=== PATIENT | male | born 1995 | race Caucasian/White ===

== ENCOUNTER → 2020-01-12 12:06 | Outpatient (BNVA) | payer MEDICAID, SELFPAY | PROVIDERS: Family Provider Internal Medicine; PCP Internal Medicine; Visit Provider Psychiatry & Neurology Psychiatry | DX: F39 Unspecified mood [affective] disorder (principal) | CPT/HCPCS: 80053; 80164; 85025 ==

== ENCOUNTER 2020-05-18 19:38 | Inpatient (IN) | payer MEDICAID, SELFPAY ==
[2020-05-18 19:46] VITALS: BP 137/84; PULSE 96; RESP 16; TEMP 36.6; O2SAT 98; BMI 34.4
[2020-05-18 20:02] VITALS: BP 138/88; PULSE 94; RESP 16; O2SAT 98
[2020-05-18 20:22] LABS: Basophils % 0.3 %; Eosinophils # 0.1 10^3/uL (0.0-0.8); Eosinophils % 1.2 %; Hematocrit 43.3 % (42.0-52.0); Hemoglobin 14.3 g/dL (11.7-16.6); Lymphocytes # 2.3 10^3/uL (0.8-4.8); Lymphocytes % 30.3 %; Mean Corpuscular Hemoglobin 28.5 pg (28.0-34.0); Mean Corpuscular Volume 86.3 fL (80-94); Mean Platelet Volume 10.1 fL (7.4-10.4); Monocytes # 0.6 10^3/uL (0.2-0.9); Monocytes % 8.2 %; Neutrophils # 4.5 10^3/uL (1.8-7.7); Neutrophils % 59.7 %; Nucleated Red Blood Cells % 0 %; Platelet Count 263 10^3/cmm (130-400); Red Blood Count 5.02 10^6/uL (4.1-5.3); Red Cell Distribution Width 12.4 % (12.1-15.1); White Blood Count 7.5 10^3/uL (4.0-10.0)
[2020-05-18 20:43] LABS: Alanine Aminotransferase 35 U/L (0-41); Albumin Level 4.7 g/dL (3.5-5.2); Alkaline Phosphatase 75 IU/L (40-130); Anion Gap 20.2 (5-19); Aspartate Amino Transferase 26 U/L (0-40); Blood Urea Nitrogen 10 mg/dL (6-20); Calcium 9.5 mg/dL (8.5-10.5); Carbon Dioxide 22 mmol/L (22-29); Chloride 102 mmol/L (98-107); Globulin 3.2 g/dL (1.3-4.6); Glomerular Filtration Rate 135.3 mL/min (90-130); Glucose 93 mg/dL (65-115); Osmolality Calculated 286 mOsm/kg (285-295); Potassium 4.2 mmol/L (3.5-5.1); Sodium 140 mmol/L (136-145); Total Bilirubin 0.2 mg/dL (0.15-1.2); Total Protein 7.9 g/dL (6.6-8.7)
[2020-05-18 20:45] LABS: Acetaminophen < 5.0 ug/mL (10-30); Alcohol Level < 10 mg/dL (0-10); Salicylate < 0.3 mg/dL (3-10)
[2020-05-18 20:57] LABS: Add Urine Microscopic? YES; Bilirubin Urine Neg (NEGATIVE); Blood Urine Trace (Negative); Glucose Urine UA Norm (Normal); Ketones Urine Negative (Negative); Leukocyte Esterase Urine 2+ (Negative); Nitrate Urine Negative (Negative); Protein Urine Neg (Negative); Specific Gravity, Urine 1.015 (1.005-1.030); Urine Appearance Cloudy (CLEAR); Urine Color Yellow (Yellow); Urobilinogen Urine Norm (Negative); pH Urine 7 (5-7)
[2020-05-18 20:59] LABS: Bacteria Urine 2+; RBC Urine 0-4 /hpf (0-2); Squamous Epithelial Cell Urine 0-4 (0-5); WBC Urine TOO NUMEROUS TO CNT /hpf (0-5)
[2020-05-18 21:00] LABS: Add Urine Culture? Yes
[2020-05-18 21:02] LABS: Amphetamines Screen Urine Negative (Negative); Barbiturates Screen Urine Negative (Negative); Benzodiazepines Screen Urine Negative (Negative); Cocaine Screen Urine Negative (Negative); Opiate Screen Urine Negative (Negative); PCP Screen Urine Negative (Negative); THC Screen Urine Negative (Negative)
[2020-05-18 21:32] VITALS: RESP 16
[2020-05-18 22:12] VITALS: BP 120/88; PULSE 95; RESP 16; O2SAT 96
[2020-05-18 22:13] VITALS: PULSE 94; RESP 16; O2SAT 97
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
--- NOTE | 2020-05-18 23:01 | PC.NURSE ---
The patient does not know his current medications. There are medications by history in his record. I am unable to verify his medications with a pharmacy at this time.
[2020-05-18] MEDS: OLANZapine 5 mg ODT PO (23:02)
[2020-05-18] MEDS: trazodone 50 mg Tablet PO (23:02)
[2020-05-18] MEDS: hyDROXYzine 25 mg Capsule 50 MG PO (23:02)
[2020-05-18 23:36] VITALS: BP 133/90; PULSE 96; RESP 17; TEMP 36.6; O2SAT 98
[2020-05-19] MEDS: haloperidol 5 mg Tablet PO (00:57)
[2020-05-19 06:00] VITALS: BP 128/89; PULSE 94; RESP 19; TEMP 36.6; O2SAT 98
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
[2020-05-19 13:07] VITALS: BP 129/78; PULSE 101; RESP 18; TEMP 37; O2SAT 99
[2020-05-19] MEDS: hyDROXYzine 25 mg Capsule 50 MG PO (21:10)
[2020-05-19] MEDS: trazodone 50 mg Tablet PO (21:11)
[2020-05-19 22:00] VITALS: BP 127/85; PULSE 93; RESP 17; TEMP 37.1; O2SAT 97
--- NOTE | 2020-05-19 22:54 | PC.NURSE ---
Pt was given PRN meds Vistaril and Trazodone per request at HS.
[2020-05-20 06:00] VITALS: BP 118/73; PULSE 78; RESP 15; TEMP 36.7; O2SAT 97
[2020-05-20 14:00] VITALS: BP 131/86; PULSE 98; RESP 20; TEMP 36.7; O2SAT 96
[2020-05-20] MEDS: divalproex ER 250 mg Tablet (24H) PO (15:00)
[2020-05-20] MEDS: risperiDONE 1 mg Tablet PO (15:27)
[2020-05-20] MEDS: benztropine 1 mg Tablet PO (15:30)
[2020-05-20] MEDS: quetiapine 100 mg Tablet 200 MG PO (15:30)
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
[2020-05-20 17:30] VITALS: BP 131/86; PULSE 98; RESP 20; TEMP 36.7; O2SAT 96
[2020-05-20 18:34] VITALS: BP 135/85
[2020-05-20] MEDS: cloNIDine 0.1 mg Tablet PO (18:34)
--- NOTE | 2020-05-20 19:52 | PC.NURSE ---
PATIENT LEFT AT 1900 PER PRIVATE VEHICLE, BELONGINGS SENT WITH.
== END 2020-05-20 19:00 | disposition home or self-care (01) | DRG 885 ==
LOC: ER 20:09 → NP 22:12
PROVIDERS: Physician Assistant; Admitting Provider Psychiatry & Neurology Psychiatry; Visit Provider Psychiatry & Neurology Psychiatry
DX: F23 Brief psychotic disorder (principal); R45.851 Suicidal ideations; F63.81 Intermittent explosive disorder; F60.89 Other specific personality disorders; F79 Unspecified intellectual disabilities; Z87.891 Personal history of nicotine dependence
CPT/HCPCS: 12345; 80053; 80306; 80307; 81001; 85025; 87077; 87086; 87186; 99284; Q0161

== ENCOUNTER 2020-05-18 19:38 | Emergency (ER) | payer MEDICAID, SELFPAY | END 2020-05-18 22:15 | disposition admitted as inpatient to this hospital (09) | LOC: ER 05-23 00:31 | PROVIDERS: Emergency Provider Family Medicine | DX: R45.851 Suicidal ideations (principal); F23 Brief psychotic disorder; Z87.891 Personal history of nicotine dependence | CPT/HCPCS: 99284; 99285 ==

== ENCOUNTER 2021-01-07 10:00 | Outpatient (CLI) | payer MEDICAID, SELFPAY ==
--- NOTE | 2021-01-07 10:12 | FL_ITS ---
WS: [id number] MODIFIED BARIUM SWALLOW TECHNIQUE: Modified barium swallow with speech therapy using multiple consistencies. FLUOROSCOPY TIME: 2.7 minutes. CLINICAL INFORMATION: Other dysphagia COMPARISON: None. FINDINGS: Limited examination due to patient cooperation. Multiple consistencies utilized. No evidence of aspiration or penetration. No difficulties with the b arium tablet. Normal oropharyngeal phase. FL/FL barium swallow modifd [id number] IMPRESSION: No evidence of aspiration penetration
== END 2021-01-07 10:01 | disposition home or self-care (01) ==
LOC: RAD 10:07
PROVIDERS: PCP Nurse Practitioner Family; Visit Provider Nurse Practitioner Family
DX: R13.10 Dysphagia, unspecified (principal)
CPT/HCPCS: 74230; 92611

== ENCOUNTER 2021-09-11 16:55 | Inpatient (IN) | payer MEDICAID, SELFPAY ==
[2021-09-11 16:59] VITALS: BP 123/88; PULSE 95; RESP 18; TEMP 36.7; O2SAT 98; BMI 26.7
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
[2021-09-11 17:58] LABS: Basophils % 0.5 %; Eosinophils # 0.1 10^3/uL (0.0-0.8); Eosinophils % 0.9 %; Hematocrit 42.3 % (42.0-52.0); Hemoglobin 14.9 g/dL (11.7-16.6); Lymphocytes # 2.4 10^3/uL (0.8-4.8); Lymphocytes % 41.7 %; Mean Corpuscular HGB Conc 35.2 g/dL (30.0-36.0); Mean Corpuscular Hemoglobin 29.9 pg (28.0-34.0); Mean Corpuscular Volume 84.9 fl (80-94); Mean Platelet Volume 10.6 fL (7.4-10.4); Monocytes # 0.5 10^3/uL (0.2-0.9); Monocytes % 9.1 %; Neutrophils # 2.76 10^3/uL (1.8-7.7); Neutrophils % 47.6 %; Nucleated Red Blood Cells % 0 %; Platelet Count 261 10^3/cmm (130-400); Red Blood Count 4.98 10^6/uL (4.1-5.3); Red Cell Distribution Width 12.5 % (12.1-15.1); White Blood Count 5.8 10^3/uL (4.0-10.0)
[2021-09-11 18:32] LABS: Alanine Aminotransferase 18 U/L (0-41); Albumin Level 4.5 g/dL (3.5-5.2); Alkaline Phosphatase 83 IU/L (40-130); Anion Gap 15.1 (5-19); Aspartate Amino Transferase 13 U/L (0-40); Blood Urea Nitrogen 7 mg/dL (6-20); Calcium 9.5 mg/dL (8.5-10.5); Carbon Dioxide 26 mmol/L (22-29); Chloride 102 mmol/L (98-107); Globulin 2.7 g/dL (1.3-4.6); Glomerular Filtration Rate 186.1 mL/min (90-130); Glucose 84 mg/dL (65-115); Osmolality Calculated 285 mOsm/kg (285-295); Potassium 4.1 mmol/L (3.5-5.1); Sodium 139 mmol/L (136-145); Thyroid Stimulating Hormone 0.87 uIU/mL (0.27-4.20); Total Bilirubin 0.2 mg/dL (0.15-1.2); Total Protein 7.2 g/dL (6.6-8.7)
[2021-09-11 18:35] LABS: Acetaminophen < 5.0 ug/mL (10-30); Alcohol Level < 10 mg/dL (0-10); Salicylate < 0.3 mg/dL (3-10)
[2021-09-11 18:44] LABS: Add Urine Microscopic? NO; Charge for UA Resulting for Rev
[2021-09-11 19:11] LABS: SARS Covid-2 Antigen Negative (Negative); Specific Gravity, Urine 1.015 (1.005-1.030); Urine Appearance Clear (CLEAR); Urine Color Yellow (Yellow); pH Urine 6.5 (5-7)
[2021-09-11 19:12] LABS: Bilirubin Urine Neg (Negative); Blood Urine Neg (Negative); Glucose Urine UA Norm (Normal); Ketones Urine Negative (Negative); Leukocyte Esterase Urine Negative (Negative); Nitrate Urine Negative (Negative); Protein Urine Neg (Negative); Urobilinogen Urine Norm (Negative)
[2021-09-11 19:23] LABS: Amphetamines Screen Urine Negative (Negative); Barbiturates Screen Urine Negative (Negative); Benzodiazepines Screen Urine Negative (Negative); Cocaine Screen Urine Negative (Negative); Opiate Screen Urine Negative (Negative); PCP Screen Urine Negative (Negative); THC Screen Urine Negative (Negative)
[2021-09-11 20:19] VITALS: BP 126/78; PULSE 74; RESP 18; O2SAT 98
[2021-09-11 20:37] VITALS: BP 136/91; PULSE 108; RESP 18; TEMP 36.7; O2SAT 97
[2021-09-11 21:18] VITALS: BP 136/91; PULSE 108; RESP 18; TEMP 36.7; O2SAT 97
[2021-09-11] MEDS: hyDROXYzine 25 mg Capsule 50 MG PO (22:45)
[2021-09-11] MEDS: risperiDONE 1 mg Tablet 0.5 MG PO (22:52)
[2021-09-11] MEDS: divalproex ER 250 mg Tablet (24H) PO (22:53)
[2021-09-11] MEDS: pantoprazole DR 40 mg Tablet PO (22:53)
[2021-09-11] MEDS: cloNIDine 0.1 mg Tablet 0.2 MG PO (22:54)
[2021-09-11] MEDS: quetiapine 100 mg Tablet 400 MG PO (22:54)
[2021-09-12 05:47] VITALS: BP 136/91; PULSE 108; RESP 18; TEMP 36.7; O2SAT 97
[2021-09-12] MEDS: ferrous sulfate EC 325 mg Tablet PO (11:05)
[2021-09-12] MEDS: risperiDONE 1 mg Tablet 0.5 MG PO ×3 (11:06→21:20)
[2021-09-12 11:07] VITALS: BP 136/91
[2021-09-12] MEDS: multivitamin therapeutic Tablet 1 TAB PO (11:07)
[2021-09-12] MEDS: cloNIDine 0.1 mg Tablet PO ×2 (11:07→19:11)
[2021-09-12] MEDS: divalproex ER 250 mg Tablet (24H) PO ×3 (11:07→21:21)
[2021-09-12] MEDS: benztropine 1 mg Tablet PO ×3 (11:07→21:22)
[2021-09-12] MEDS: lactulose oral liq 20 gm/30 mL UDC 30 GM PO ×2 (11:08→19:12)
[2021-09-12] MEDS: fluticasone nasal spray 16gm Btl 1 SPRAY INTRANASAL (12:26)
[2021-09-12 14:00] VITALS: BP 120/82; PULSE 97; RESP 17; TEMP 36.4; O2SAT 98
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
[2021-09-12 19:11] VITALS: BP 120/82
[2021-09-12] MEDS: quetiapine 100 mg Tablet 400 MG PO (21:19)
[2021-09-12] MEDS: cloNIDine 0.1 mg Tablet 0.2 MG PO (21:20)
[2021-09-12] MEDS: pantoprazole DR 40 mg Tablet PO (21:20)
[2021-09-12 22:00] VITALS: BP 127/75; PULSE 79; RESP 18; TEMP 37.1; O2SAT 96
[2021-09-13 06:00] VITALS: BP 127/75; PULSE 79; RESP 18; TEMP 37.1; O2SAT 96
[2021-09-13 08:57] VITALS: BP 127/75
[2021-09-13] MEDS: risperiDONE 1 mg Tablet 0.5 MG PO ×2 (08:57→15:10)
[2021-09-13] MEDS: divalproex ER 250 mg Tablet (24H) PO ×2 (08:57→15:10)
[2021-09-13] MEDS: lactulose oral liq 20 gm/30 mL UDC 30 GM PO (08:57)
[2021-09-13] MEDS: multivitamin therapeutic Tablet 1 TAB PO (08:57)
[2021-09-13] MEDS: benztropine 1 mg Tablet PO ×2 (08:57→15:10)
[2021-09-13] MEDS: ferrous sulfate EC 325 mg Tablet PO (08:57)
[2021-09-13] MEDS: cloNIDine 0.1 mg Tablet PO (08:57)
[2021-09-13] MEDS: fluticasone nasal spray 16gm Btl 1 SPRAY INTRANASAL (10:59)
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
[2021-09-13 14:00] VITALS: BP 127/75; PULSE 79; RESP 18; TEMP 37.1; O2SAT 96
== END 2021-09-13 15:08 | disposition home or self-care (01) | DRG 883 ==
LOC: ER 19:23 → NP 20:18
PROVIDERS: Family Medicine; Admitting Provider Psychiatry & Neurology Psychiatry; Emergency Provider Emergency Medicine; Visit Provider Psychiatry & Neurology Psychiatry
DX: F63.81 Intermittent explosive disorder (principal); R45.851 Suicidal ideations; Z20.822 Contact with and (suspected) exposure to COVID-19; F84.5 Asperger's syndrome; F79 Unspecified intellectual disabilities; Z91.018 Allergy to other foods; F60.3 Borderline personality disorder; F90.9 Attention-deficit hyperactivity disorder, unspecified type
CPT/HCPCS: 80053; 80306; 80307; 81003; 84443; 85025; 87426; 99285

== ENCOUNTER 2021-09-16 19:55 | Inpatient (IN) | payer MEDICAID, SELFPAY ==
[2021-09-16 19:59] VITALS: BP 118/78; PULSE 79; RESP 18; TEMP 36.9; O2SAT 98; BMI 24.4
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
[2021-09-16 21:13] LABS: Basophils % 0.6 %; Eosinophils # 0.1 10^3/uL (0.0-0.8); Eosinophils % 1.4 %; Hematocrit 44.7 % (42.0-52.0); Hemoglobin 14.9 g/dL (11.7-16.6); Lymphocytes # 2.5 10^3/uL (0.8-4.8); Lymphocytes % 38.6 %; Mean Corpuscular HGB Conc 33.3 g/dL (30.0-36.0); Mean Corpuscular Hemoglobin 28.9 pg (28.0-34.0); Mean Corpuscular Volume 86.6 fl (80-94); Mean Platelet Volume 10.7 fL (7.4-10.4); Monocytes # 0.5 10^3/uL (0.2-0.9); Monocytes % 7.6 %; Neutrophils # 3.37 10^3/uL (1.8-7.7); Neutrophils % 51.5 %; Nucleated Red Blood Cells % 0 %; Platelet Count 281 10^3/cmm (130-400); Red Blood Count 5.16 10^6/uL (4.1-5.3); Red Cell Distribution Width 12.4 % (12.1-15.1); White Blood Count 6.6 10^3/uL (4.0-10.0)
[2021-09-16 21:55] LABS: Alanine Aminotransferase 21 U/L (0-41); Albumin Level 4.6 g/dL (3.5-5.2); Alkaline Phosphatase 84 IU/L (40-130); Anion Gap 17.8 (5-19); Aspartate Amino Transferase 16 U/L (0-40); Blood Urea Nitrogen 9 mg/dL (6-20); Calcium 9.5 mg/dL (8.5-10.5); Carbon Dioxide 22 mmol/L (22-29); Chloride 102 mmol/L (98-107); Globulin 2.7 g/dL (1.3-4.6); Glucose 123 mg/dL (65-115); Osmolality Calculated 286 mOsm/kg (285-295); Potassium 3.8 mmol/L (3.5-5.1); Sodium 138 mmol/L (136-145); Thyroid Stimulating Hormone 2.12 uIU/mL (0.27-4.20); Total Bilirubin 0.2 mg/dL (0.15-1.2); Total Protein 7.3 g/dL (6.6-8.7)
[2021-09-16 22:11] LABS: Acetaminophen < 5.0 ug/mL (10-30); Alcohol Level < 10 mg/dL (0-10); Salicylate < 0.3 mg/dL (3-10)
[2021-09-17] VITALS: BP 101/70; PULSE 80; RESP 18; O2SAT 100
[2021-09-17 00:34] LABS: Add Urine Microscopic? NO; Charge for UA Resulting for Rev
[2021-09-17 00:41] LABS: Bilirubin Urine Neg (Negative); Blood Urine Neg (Negative); Glucose Urine UA Norm (Normal); Ketones Urine Negative (Negative); Leukocyte Esterase Urine Negative (Negative); Nitrate Urine Negative (Negative); Protein Urine Neg (Negative); Sulfosalicylic Acid Urine Negative (Negative); Urine Appearance Clear (CLEAR); Urine Color Yellow (Yellow); Urobilinogen Urine Norm (Negative); pH Urine 8 (5-7)
[2021-09-17 01:00] LABS: SARS Covid-2 Antigen Negative (Negative)
[2021-09-17 01:09] LABS: Amphetamines Screen Urine Negative (Negative); Barbiturates Screen Urine Negative (Negative); Benzodiazepines Screen Urine Negative (Negative); Cocaine Screen Urine Negative (Negative); Opiate Screen Urine Negative (Negative); PCP Screen Urine Negative (Negative); THC Screen Urine Negative (Negative)
[2021-09-17] MEDS: LORazepam 1 mg Tablet PO (04:22)
--- NOTE | 2021-09-17 04:47 | PC.NURSE ---
09/16/21 2300 Pt home doses of the following were given 1 mg Cogentin 20 mg Prilosec 0.2 mg Clonidine 400 mg Seroquel 0.5 mg Risperdal 10 mg Melatonin 250 mg Depakote
--- NOTE | 2021-09-17 07:11 | PC.NURSE ---
Pt in room resting quietly. No signs of pain or distress. Will continue to monitor.
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
[2021-09-17 09:33] VITALS: BP 103/61; PULSE 85; RESP 18; O2SAT 98
[2021-09-17 10:12] VITALS: BP 115/82; PULSE 99; RESP 18; TEMP 36.2; O2SAT 98
--- NOTE | 2021-09-17 12:03 | NPU.GN ---
[facility] Group Topic: Coping Skills Bingo/ Cross word puzzle General Mood of Group: Artemio did attend and participate in group therapy this morning. Artemio was not very social with this insurance underwriter or others.
[2021-09-17 14:00] VITALS: BP 115/82; PULSE 99; RESP 18; TEMP 36.2
[2021-09-17 19:53] VITALS: BP 132/81; PULSE 71; RESP 20; TEMP 36.7; O2SAT 97
[2021-09-17] MEDS: benztropine 1 mg Tablet PO (21:33)
[2021-09-17] MEDS: cloNIDine 0.1 mg Tablet 0.2 MG PO (21:34)
[2021-09-17] MEDS: divalproex ER 250 mg Tablet (24H) PO (21:35)
[2021-09-17] MEDS: ondansetron 4 MG Tablet PO (21:58)
[2021-09-18 06:00] VITALS: BP 125/84; PULSE 84; RESP 17; TEMP 36.6; O2SAT 97
[2021-09-18] MEDS: pantoprazole DR 40 mg Tablet PO (11:12)
[2021-09-18] MEDS: risperiDONE 0.25 mg Tablet 0.5 MG PO ×3 (11:12→21:42)
[2021-09-18] MEDS: divalproex ER 250 mg Tablet (24H) PO ×2 (11:12→21:09)
[2021-09-18] MEDS: quetiapine 100 mg Tablet 200 MG PO (11:12)
[2021-09-18] MEDS: ferrous sulfate EC 325 mg Tablet PO (11:12)
[2021-09-18] MEDS: benztropine 1 mg Tablet PO ×2 (11:12→21:07)
[2021-09-18 11:13] VITALS: BP 121/76
[2021-09-18] MEDS: cloNIDine 0.1 mg Tablet PO (11:13)
[2021-09-18] MEDS: prenatal vitamin Capsule 1 CAP PO (11:13)
[2021-09-18] MEDS: fluticasone nasal spray 16gm Btl 1 SPRAY INTRANASAL (11:16)
[2021-09-18] MEDS: lactulose oral liq 20 gm/30 mL UDC PO (11:18)
--- NOTE | 2021-09-18 12:43 | NPU.GN ---
[facility] Topic:Coping Kills Checklist General Mood of Group: Artemio did not attended group today.
[2021-09-18 14:00] VITALS: BP 94/59; PULSE 92; RESP 18; TEMP 36.8; O2SAT 96
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
[2021-09-18 20:04] VITALS: BP 121/78; PULSE 102; RESP 18; TEMP 36.6; O2SAT 98
[2021-09-18] MEDS: cloNIDine 0.1 mg Tablet 0.2 MG PO (21:08)
--- NOTE | 2021-09-19 04:40 | PC.NURSE ---
EVENING- Patient has no complaints voiced. Speech is loud and needs frequent redirection to lower volume. Denies any SI/HI or AVH. Has been in Day room watching TV throughout most of evening. NIGHT- In bed resting with eyes closed throughout night. No complaints voiced. No distress noted.
[2021-09-19 05:57] VITALS: RESP 16
[2021-09-19] MEDS: fluticasone nasal spray 16gm Btl 1 SPRAY INTRANASAL (12:48)
[2021-09-19] MEDS: ferrous sulfate EC 325 mg Tablet PO (12:49)
[2021-09-19] MEDS: prenatal vitamin Capsule 1 CAP PO (12:49)
[2021-09-19] MEDS: pantoprazole DR 40 mg Tablet PO (12:49)
[2021-09-19] MEDS: benztropine 1 mg Tablet PO ×3 (12:49→14:26)
[2021-09-19] MEDS: divalproex ER 250 mg Tablet (24H) PO ×3 (12:49→14:25)
[2021-09-19] MEDS: risperiDONE 0.25 mg Tablet 0.5 MG PO ×2 (12:53→14:26)
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
[2021-09-19 14:40] VITALS: RESP 16
== END 2021-09-19 17:25 | disposition home or self-care (01) | DRG 883 ==
LOC: ER 09-17 06:10 → NP 09-17 09:24
PROVIDERS: Physician Assistant; Admitting Provider Psychiatry & Neurology Psychiatry; Emergency Provider Family Medicine; PCP Nurse Practitioner Family; Visit Provider Psychiatry & Neurology Child & Adolescent Psychiatry
DX: F63.81 Intermittent explosive disorder (principal); F79 Unspecified intellectual disabilities; F31.9 Bipolar disorder, unspecified; F84.0 Autistic disorder; F60.89 Other specific personality disorders; Z87.891 Personal history of nicotine dependence; F90.9 Attention-deficit hyperactivity disorder, unspecified type; F42.9 Obsessive-compulsive disorder, unspecified
CPT/HCPCS: 80053; 80306; 80307; 81003; 84443; 85025; 87426; 97150; 97165; 99285; Q0162

== ENCOUNTER 2021-09-22 10:23 | Inpatient (IN) | payer MEDICAID, SELFPAY ==
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
[2021-09-22 10:51] VITALS: BP 111/78; PULSE 71; RESP 17; TEMP 37.1; O2SAT 99; BMI 26.7
--- NOTE | 2021-09-22 11:18 | PC.NURSE ---
Pt changed into paper scrubs and belongs placed in cabinet.
[2021-09-22 11:50] LABS: Basophils % 0.4 %; Eosinophils # 0.1 10^3/uL (0.0-0.8); Eosinophils % 1.4 %; Hematocrit 41.2 % (42.0-52.0); Hemoglobin 13.7 g/dL (11.7-16.6); Lymphocytes # 2.1 10^3/uL (0.8-4.8); Lymphocytes % 39.7 %; Mean Corpuscular HGB Conc 33.3 g/dL (30.0-36.0); Mean Corpuscular Hemoglobin 28.8 pg (28.0-34.0); Mean Corpuscular Volume 86.6 fl (80-94); Mean Platelet Volume 10.1 fL (7.4-10.4); Monocytes # 0.6 10^3/uL (0.2-0.9); Monocytes % 11.2 %; Neutrophils # 2.44 10^3/uL (1.8-7.7); Neutrophils % 47.1 %; Nucleated Red Blood Cells % 0 %; Platelet Count 246 10^3/cmm (130-400); Red Blood Count 4.76 10^6/uL (4.1-5.3); Red Cell Distribution Width 12.3 % (12.1-15.1); White Blood Count 5.2 10^3/uL (4.0-10.0)
[2021-09-22 12:11] LABS: Alanine Aminotransferase 22 U/L (0-41); Albumin Level 4.2 g/dL (3.5-5.2); Alkaline Phosphatase 76 IU/L (40-130); Anion Gap 15.9 (5-19); Aspartate Amino Transferase 15 U/L (0-40); Blood Urea Nitrogen 7 mg/dL (6-20); Calcium 9.3 mg/dL (8.5-10.5); Carbon Dioxide 24 mmol/L (22-29); Chloride 102 mmol/L (98-107); Globulin 2.7 g/dL (1.3-4.6); Glucose 80 mg/dL (65-115); Osmolality Calculated 283 mOsm/kg (285-295); Potassium 3.9 mmol/L (3.5-5.1); Sodium 138 mmol/L (136-145); Total Bilirubin 0.2 mg/dL (0.15-1.2); Total Protein 6.9 g/dL (6.6-8.7)
[2021-09-22 12:16] LABS: Acetaminophen < 5.0 ug/mL (10-30); Alcohol Level < 10 mg/dL (0-10); Salicylate < 0.3 mg/dL (3-10)
--- NOTE | 2021-09-22 15:54 | PC.PHAR ---
PT IS FROM [facility] [phone] THE PTS SPONSOR AND FAXED THE PTS MED LIST
[2021-09-22 16:03] VITALS: BP 115/72; PULSE 104; RESP 20; TEMP 36.2; O2SAT 98
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
[2021-09-22 19:34] VITALS: BP 118/79; PULSE 79; RESP 20; TEMP 36.6; O2SAT 99
[2021-09-22] MEDS: cloNIDine 0.1 mg Tablet 0.2 MG PO (20:40)
[2021-09-22] MEDS: hyDROXYzine 25 mg Capsule 50 MG PO (20:40)
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
[2021-09-22] MEDS: trazodone 50 mg Tablet PO (20:41)
[2021-09-22] MEDS: lactulose oral liq 20 gm/30 mL UDC PO (20:41)
[2021-09-22] MEDS: divalproex ER 250 mg Tablet (24H) PO (20:41)
[2021-09-22] MEDS: risperiDONE 0.25 mg Tablet 0.5 MG PO (20:41)
[2021-09-22] MEDS: quetiapine 100 mg Tablet PO (20:41)
[2021-09-22] MEDS: pantoprazole DR 40 mg Tablet PO (20:41)
[2021-09-22] MEDS: quetiapine 300 mg Tablet PO (20:47)
--- NOTE | 2021-09-22 22:00 | PC.NURSE ---
pt continue to come up to the desk requested prn meds. pt was told he was given trazodone and vistaril at 2039,that he needed to go lay down in his bed and try to rest. pt has requested several times for glasses of ice water this night. pt stated he was trying to drink a lot of water because it's healthier than not drinking enough water right? I'm not trying to flush my meds though.
--- NOTE | 2021-09-23 00:34 | PC.NURSE ---
pt finally resting quietly at this time with both eyes closed.
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
[2021-09-23 06:00] VITALS: RESP 17
[2021-09-23 07:58] LABS: Valproic Acid Level 26.1 ug/mL (50-100)
[2021-09-23] MEDS: risperiDONE 0.25 mg Tablet 0.5 MG PO ×3 (11:00→20:28)
[2021-09-23] MEDS: quetiapine 100 mg Tablet 200 MG PO ×2 (11:00→13:40)
[2021-09-23] MEDS: ferrous sulfate EC 325 mg Tablet PO (11:00)
[2021-09-23] MEDS: divalproex ER 250 mg Tablet (24H) PO ×3 (11:01→20:29)
[2021-09-23] MEDS: lactulose oral liq 20 gm/30 mL UDC PO ×2 (11:01→20:28)
[2021-09-23 11:03] VITALS: BP 111/78
[2021-09-23] MEDS: cloNIDine 0.1 mg Tablet PO ×2 (11:03→13:39)
[2021-09-23 13:48] VITALS: BP 120/75; PULSE 99; RESP 18; TEMP 36.1; O2SAT 93
--- NOTE | 2021-09-23 16:12 | NPU.GN ---
[facility] Group Topic:Jinga (Addiction) General Mood of Group: Patient did come to group and did participate. Patient was on time, dressed appropriately and had good hygiene. The group played addiction Jinga. They read a question off of each jinga block they pulled and shared with the group the answer to their question. Group did make a brief trip outside for some air. They were all in a great mood, they all communicated with each other well.
--- NOTE | 2021-09-23 16:51 | PM.NPN ---
Subjective NPU Subjective: Interval history: I met with the treatment team to discuss the patient's progress. The social work administrator spoke with his guardian Yumiko, who says he has not been his normal self for the past 2 or 3 weeks. She says that there was a medication change made at that time, and he has been more angry and dysregulated since then. Unfortunately, we do not know the medication change and have not been able to reach anyone to confirm. The patient agrees that his mood changed a lot after a medication change 2 or 3 weeks ago. He also does not know the medication that was changed. But he says he has been angrier and its harder to control his temper. He does feel that we need to get his anger under control in order for him to be successful. He is not currently suicidal or homicidal. He is more under control here, but he still gets quite dysregulated when talking about going home. I have been able to find the following information about medications in our EHR. However, I do not know if the chlorpromazine was discontinued a couple of weeks ago, or if that was a change made in the more distant past. Current psych meds clonidine HCl 0.1 mg bid; 0.2 mg bedtime melatonin 10 mg bedtime Seroquel 200 mg bid; 400 mg bedtime Depakote ER 250 mg tid benztropine 1 mg tid chlorpromazine - discontinued Risperdal 0.5 mg tid Psych Meds on 05/20/21 clonidine HCl 0.1 mg bid; 0.2 mg bedtime melatonin 6 mg bedtime Seroquel 200 mg bid; 400 mg bedtime Depakote ER 250 mg tid benztropine 1 mg tid chlorpromazine 150 mg tid Risperdal 1 mg tid Mental Status Exam MSE Comments: The patient was agitated, speaking loudly, and making poor eye contact, but he is a little Kolmer today and more interruptible. She had psychomotor agitation. Speech was pressured interruptible. She was alert and oriented to person, place, time, and situation. Attention and concentration are impaired due to emotional dysregulation. Memory is colored by emotional state. Mood is intensely dysphoric and dysregulated; affect is labile but more cooperative. Thought process is more logical, but still with racing thoughts. Thought content: Denies auditory and visual hallucinations. There are no delusions noted. No suicidal or homicidal ideation. Insight and judgment are impaired by emotional dysregulation. Impulse control is also impaired. Vitals/I&O/Wt Last Vital Signs Temp 97.9 F 09/22/21 19:34 Pulse 79 09/22/21 19:34 Resp 17 09/23/21 06:00 BP 111/78 09/23/21 11:03 Pulse Ox 99 09/22/21 19:34 Weight last 48 hrs Weight 87.09 kg Data NPU : 09/22/21 11:39 09/22/21 11:39 A&P Assessment and plan (1) Aggressive behavior: Status: Acute (2) Intellectual disability: Status: Chronic (3) Intermittent explosive disorder: Status: Chronic (4) Cluster B personality disorder: Status: Chronic Additional A&P Information This is a 26 year old trans female with a history of cluster B personality disorder, intermittent explosive disorder, and suicidal ideation, who was admitted after becoming aggressive with staff and residents of their long term. She was discharged from the neuropsychiatric unit 3 days ago after a 2-day hospital stay. The patient clearly has intensely dysregulated emotions which she cannot bring under control no matter the level of external controls. The dysregulation leads to physical aggression and endangers others. She needs further adjustment of medication in order to achieve better emotional regulation. RECOMMENDATION AND PLAN: 1. Continue current medication. We will make medication adjustments after further review. We are still trying to track down the medication change that was made 2 or 3 weeks ago. 2. Continue every 15 minute checks for safety. 3. Encourage individual, group and milieu therapies. Involuntary Hold Information 96 Hour Hold: 96 Hour Involuntary Admission: No Attestations NPU Medical Necessity Statement*: Psychiatric hospitalization is medically necessary to prevent access to lethal means, to reevaluate medication, and to coordinate a safe discharge. Likely length of stay is 2-4 days. Coding Level of Care Code Acute Aircraft Sales Representative for [facility] Diagnoses Aggressive behavior R46.89 Intellectual disability F79 Intermittent explosive disorder F63.81 Cluster B personality disorder F60.89
[2021-09-23 20:02] VITALS: BP 123/74; PULSE 68; RESP 19; TEMP 36.9; O2SAT 95
[2021-09-23 20:28] VITALS: BP 123/74
[2021-09-23] MEDS: pantoprazole DR 40 mg Tablet PO (20:28)
[2021-09-23] MEDS: cloNIDine 0.1 mg Tablet 0.2 MG PO (20:28)
[2021-09-23] MEDS: quetiapine 100 mg Tablet PO (20:28)
[2021-09-23] MEDS: quetiapine 300 mg Tablet PO (20:29)
[2021-09-23] MEDS: trazodone 50 mg Tablet PO (20:29)
--- NOTE | 2021-09-24 01:31 | PC.NURSE ---
Patient resting in bed quietly this evening. Reports feeling very tired. Denies SI/HI. Denies AVH. Denies anxiety and depression. Has been resting in bed with eyes closed throughout night. No distress noted.
[2021-09-24 06:00] VITALS: RESP 16
[2021-09-24 09:30] VITALS: BP 123/74
[2021-09-24] MEDS: risperiDONE 0.25 mg Tablet 0.5 MG PO ×3 (09:30→19:44)
[2021-09-24] MEDS: cloNIDine 0.1 mg Tablet PO ×2 (09:30→13:07)
[2021-09-24] MEDS: ferrous sulfate EC 325 mg Tablet PO (09:30)
[2021-09-24] MEDS: quetiapine 100 mg Tablet 200 MG PO ×2 (09:31→13:07)
[2021-09-24] MEDS: divalproex ER 250 mg Tablet (24H) PO ×3 (09:31→19:44)
[2021-09-24] MEDS: lactulose oral liq 20 gm/30 mL UDC PO ×2 (09:32→19:43)
--- NOTE | 2021-09-24 11:15 | NPU.GN ---
[facility] Group Topic: Stress Map General Mood of Group: Artemio did not attend group today as he wanted to sleep.
[2021-09-24 12:53] VITALS: BP 119/76; PULSE 109; RESP 17; TEMP 36.3; O2SAT 97
[2021-09-24 13:07] VITALS: BP 119/76
--- NOTE | 2021-09-24 17:38 | P.PN_ITS ---
Subjective NPU Subjective: Interval history: I discussed the patient's progress with the treatment team. The social problems specialist spoke with her powerhouse mechanic helper, but doesn't think her medication has been changed in the past few weeks. This is a different impression than the patient's guardian and the staff who accompanied her to the ED. She has had difficulty with emotional regulation here. The patient says she can control herself here, but not at home. She says she is trying to get out of here, so she is able to do it. She says it is hard to fall asleep without a doll or stuffed animal. I did talk with her more about past medications. She says that Zyprexa caused weight gain, and Depakote makes weight loss difficult. She thinks Abilify might have been helpful. Mental Status Exam MSE Comments: The patient was calmer and made better eye contact today. She had mild psychomotor agitation. Speech was mildly pressured but interruptible. She was alert and oriented to person, place, time, and situation. Attention and concentration are improved today. Memory is colored by emotional state. Mood is moderately dysphoric and mildly dysregulated; affect is somewhat labile. Thought process is more logical, but still with racing thoughts. Thought content: Denies auditory and visual hallucinations. There are no delusions noted. No suicidal or homicidal ideation. Insight and judgment are impaired by emotional dysregulation. Impulse control is also impaired. Vitals/I&O/Wt Last Vital Signs Temp 97.4 F L 09/24/21 12:53 Pulse 109 H 09/24/21 12:53 Resp 17 09/24/21 12:53 BP 119/76 09/24/21 13:07 Pulse Ox 97 09/24/21 12:53 Data NPU : 09/22/21 11:39 09/22/21 11:39 A&P Assessment and plan (1) Aggressive behavior: Status: Acute (2) Intellectual disability: Status: Chronic (3) Intermittent explosive disorder: Status: Chronic (4) Cluster B personality disorder: Status: Chronic Additional A&P Information This is a 26 year old trans female with a history of cluster B personality disorder, intermittent explosive disorder, and suicidal ideation, who was admitted after becoming aggressive with staff and residents of their [facility]. She was discharged from the neuropsychiatric unit 3 days ago after a 2-day hospital stay. The patient clearly has intensely dysregulated emotions which she cannot bring under control no matter the level of external controls. The dysregulation leads to physical aggression and endangers others. She needs further adjustment of medication in order to achieve better emotional regulation. RECOMMENDATION AND PLAN: 1. Continue current medication. We will make medication adjustments after further review. We are still trying to track down the medication change that was made 2 or 3 weeks ago. 2. Continue every 15 minute checks for safety. 3. Encourage individual, group and milieu therapies. Involuntary Hold Information 96 Hour Hold: 96 Hour Involuntary Admission: No Attestations NPU Medical Necessity Statement*: Psychiatric hospitalization is medically necessary to prevent access to lethal means, to reevaluate medication, and to coordinate a safe discharge. Likely length of stay is 2-4 days. Coding Level of Care Code Acute Iap Displays Analyst for [facility] Diagnoses Aggressive behavior R46.89 Intellectual disability F79 Intermittent explosive disorder F63.81 Cluster B personality disorder F60.89
[2021-09-24 19:37] VITALS: BP 129/84; PULSE 95; RESP 18; TEMP 36.6; O2SAT 97
[2021-09-24] MEDS: cloNIDine 0.1 mg Tablet 0.2 MG PO (19:44)
[2021-09-24] MEDS: quetiapine 100 mg Tablet PO (19:44)
[2021-09-24] MEDS: quetiapine 300 mg Tablet PO (19:44)
[2021-09-24] MEDS: pantoprazole DR 40 mg Tablet PO (19:44)
--- NOTE | 2021-09-25 04:21 | PC.NURSE ---
Calm and cooperative in evening. In dayroom watching TV. Denies SI/HI, AVH, anxiety and depression. Has been in bed resting with eyes closed throughout remainder night. No complaints voiced. No signs of distress noted.
[2021-09-25 05:57] VITALS: RESP 17
--- NOTE | 2021-09-25 08:29 | P.PN_ITS ---
Subjective NPU Subjective: Interval history: I spoke with the patient. He still has little insight into his emotional dysregulation and tends to blame others for his difficulties. No AV hallucinations. No suicidal or homicidal ideation. No side effects. Mental Status Exam MSE Comments: The patient was calmer and made better eye contact today. She had mild psychomotor agitation. Speech was mildly pressured but interruptible. She was alert and oriented to person, place, time, and situation. Attention and concentration are improved today. Memory is colored by emotional state. Mood is moderately dysphoric and mildly dysregulated; affect is somewhat labile. Thought process is more logical, but still with racing thoughts. Thought content: Denies auditory and visual hallucinations. There are no d elusions noted. No suicidal or homicidal ideation. Insight and judgment are impaired by emotional dysregulation. Impulse control is also impaired. Vitals/I&O/Wt Last Vital Signs Temp 97.9 F 09/24/21 19:37 Pulse 95 09/24/21 19:37 Resp 17 09/25/21 05:57 BP 129/84 09/24/21 19:37 Pulse Ox 97 09/24/21 19:37 Data NPU : 09/22/21 11:39 09/22/21 11:39 A&P Assessment and plan (1) Aggressive behavior: Status: Acute (2) Intellectual disability: Status: Chronic (3) Intermittent explosive disorder: Status: Chronic (4) Cluster B personality disorder: Status: Chronic Additional A&P Information This is a 26 year old trans female with a history of cluster B personality disorder, intermittent explosive disorder, and suicidal ideation, who was admitted after becoming aggressive with staff and residents of their [facility]. She was discharged from the neuropsychiatric unit 3 days ago after a 2-day hospital stay. The patient clearly has intensely dysregulated emotions which she cannot bring under control no matter the level of external controls. The dysregulation leads to physical aggression and endangers others. She needs further adjustment of medication in order to achieve better emotional regulation. RECOMMENDATION AND PLAN: 1. Continue current medication. We have still not received the fax of the patient's MAR for the past few months. 2. Continue every 15 minute checks for safety. 3. Encourage individual, group and milieu therapies. Involuntary Hold Information 96 Hour Hold: 96 Hour Involuntary Admission: No Attestations NPU Medical Necessity Statement*: Psychiatric hospitalization is medically necessary to prevent access to lethal means, to reevaluate medication, and to coordinate a safe discharge. Likely length of stay is 2-4 days. Coding Level of Care Code Acute Negative Cleaner for [employer] Fwd Diagnoses Aggressive behavior R46.89 Intellectual disability F79 Intermittent explosive disorder F63.81 Cluster B personality disorder F60.89
[2021-09-25] MEDS: risperiDONE 0.25 mg Tablet 0.5 MG PO ×3 (09:07→20:38)
[2021-09-25] MEDS: lactulose oral liq 20 gm/30 mL UDC PO ×2 (09:07→20:38)
[2021-09-25 09:08] VITALS: BP 129/84
[2021-09-25] MEDS: divalproex ER 250 mg Tablet (24H) PO ×3 (09:08→20:38)
[2021-09-25] MEDS: cloNIDine 0.1 mg Tablet PO ×2 (09:08→15:24)
[2021-09-25] MEDS: quetiapine 100 mg Tablet 200 MG PO ×2 (09:09→15:26)
[2021-09-25] MEDS: ferrous sulfate EC 325 mg Tablet PO (09:09)
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
[2021-09-25 13:50] VITALS: BP 122/80; PULSE 99; RESP 17; TEMP 37.4; O2SAT 97
[2021-09-25 15:24] VITALS: BP 122/80
--- NOTE | 2021-09-25 20:00 | PC.NURSE ---
Upon assessment patient in day room. Patient is alert/oriented x3. Patient denies any depression, anxiety. SI/HI. hallucinations at the time of assessment. He also denies any pain. He does request that he be able to wash his hair. He wants to take a shower but is frustrated because he doesn't have any clean underwear to put on if he showers. Patient does not want to wear the mesh hospital underwear. This Nurse took patient to the bathtub on the other hallway and had him wash his hair with the faucet in the tub. Patient stated he felt much better and also changed into clean scrubs. Patient later came to desk to complain about another patient's snoring..patient began to escalate and this nurse and Efe RN de-escalated patient verbally and quickly. Patient then retired to bed where he soon fell asleep. Will continue to monitor and follow plan of care. Q 15 min safety checks per protocol.
[2021-09-25] MEDS: cloNIDine 0.1 mg Tablet 0.2 MG PO (20:38)
[2021-09-25] MEDS: quetiapine 100 mg Tablet PO (20:38)
[2021-09-25] MEDS: pantoprazole DR 40 mg Tablet PO (20:38)
[2021-09-25] MEDS: quetiapine 300 mg Tablet PO (20:38)
[2021-09-25 21:23] VITALS: BP 142/78; PULSE 104; RESP 19; TEMP 36.7; O2SAT 100
[2021-09-26 06:00] VITALS: RESP 15
[2021-09-26] MEDS: risperiDONE 0.25 mg Tablet 0.5 MG PO ×3 (09:52→20:25)
[2021-09-26] MEDS: quetiapine 100 mg Tablet 200 MG PO ×2 (09:52→11:53)
[2021-09-26] MEDS: ferrous sulfate EC 325 mg Tablet PO (09:52)
[2021-09-26] MEDS: divalproex ER 250 mg Tablet (24H) PO ×3 (09:52→20:25)
[2021-09-26] MEDS: lactulose oral liq 20 gm/30 mL UDC PO ×2 (09:52→20:25)
[2021-09-26 09:53] VITALS: BP 142/78
[2021-09-26] MEDS: cloNIDine 0.1 mg Tablet PO ×2 (09:53→11:53)
[2021-09-26] MEDS: pantoprazole DR 40 mg Tablet PO (09:53)
[2021-09-26 11:53] VITALS: BP 142/78
--- NOTE | 2021-09-26 11:56 | NPU.GN ---
[facility] Topic:Laisha General Mood of Group: Artemio did attend and socialize in group today. Artemio seemed more focused and was able to hold normal conversation.
[2021-09-26 13:40] VITALS: BP 89/52; PULSE 88; RESP 17; TEMP 36.7; O2SAT 96
--- NOTE | 2021-09-26 14:10 | P.NPUPN_ITS ---
Subjective NPU Subjective: Interval history: The patient is stirred up about being in the hospital still. He still blames the staff for not giving him a warning before calling the police. He is unable to see he has a role in these events. No AV hallucinations. No suicidal or homicidal ideation. No medication side effects. Mental Status Exam MSE Comments: The patient was a bit stirred up about not making a halloween alliance party tonight, and made fair eye contact today. She had mild psychomotor agitation. Speech was mildly pressured but interruptible. She was alert and oriented to person, place, time, and situation. Attention and concentration are improved today. Memory is colored by emotional state. Mood is moderately dysphoric and mildly dysregulated; affect is somewhat labile. Thought process is more logical, but still with racing thoughts. Thought content: Denies auditory and visual hallucinations. There are no delusions noted. No suicidal or homicidal ideation. Insight and judgment are impaired by emotional dysregulation. Impulse control is also impaired. Vitals/I&O/Wt Last Vital Signs Temp 98.1 F 09/26/21 13:40 Pulse 88 09/26/21 13:40 Resp 17 09/26/21 13:40 BP 89/52 09/26/21 13:40 Pulse Ox 96 09/26/21 13:40 Data NPU : 09/22/21 11:39 09/22/21 11:39 A&P Assessment and plan (1) Aggressive behavior: Status: Acute (2) Intellectual disability: Status: Chronic (3) Intermittent explosive disorder: Status: Chronic (4) Cluster B personality disorder: Status: Chronic Additional A&P Information This is a 26 year old trans female with a history of cluster B personality disorder, intermittent explosive disorder, and suicidal ideation, who was admitted after becoming aggressive with staff and residents of their [facility]. She was discharged from the neuropsychiatric unit 3 days ago after a 2-day hospital stay. The patient clearly has intensely dysregulated emotions which she cannot bring under control no matter the level of external controls. The dysregulation leads to physical aggression and endangers others. She needs further adjustment of medication in order to achieve better emotional regulation. RECOMMENDATION AND PLAN: 1. Continue current medication. We have still not received the fax of the patient's MAR for the past few months. We go ahead and add Lamictal 25 mg daily for mood stabilization. 2. Continue every 15 minute checks for safety. 3. Encourage individual, group and milieu therapies. Involuntary Hold Information 96 Hour Hold: 96 Hour Involuntary Admission: No Attestations NPU Medical Necessity Statement*: Psychiatric hospitalization is medically necessary to prevent access to lethal means, to reevaluate medication, and to coordinate a safe discharge. Likely length of stay is 2-4 days. Coding Level of Care Code Acute Car Park Attendant for [facility] Fwd Diagnoses Aggressive behavior R46.89 Intellectual disability F79 Intermittent explosive disorder F63.81 Cluster B personality disorder F60.89
[2021-09-26] MEDS: lamoTRIgine 25 mg Tablet PO (17:25)
[2021-09-26 20:16] VITALS: BP 133/82; PULSE 85; RESP 18; TEMP 36.9; O2SAT 97
[2021-09-26] MEDS: cloNIDine 0.1 mg Tablet 0.2 MG PO (20:25)
[2021-09-26] MEDS: quetiapine 300 mg Tablet PO (20:26)
[2021-09-26] MEDS: quetiapine 100 mg Tablet PO (20:27)
[2021-09-27 06:00] VITALS: RESP 16
[2021-09-27] MEDS: lactulose oral liq 20 gm/30 mL UDC PO ×2 (08:07→19:45)
[2021-09-27] MEDS: ferrous sulfate EC 325 mg Tablet PO (08:08)
[2021-09-27] MEDS: lamoTRIgine 25 mg Tablet PO (08:08)
[2021-09-27] MEDS: divalproex ER 250 mg Tablet (24H) PO ×3 (08:08→19:47)
[2021-09-27] MEDS: quetiapine 100 mg Tablet 200 MG PO ×2 (08:09→14:35)
[2021-09-27] MEDS: cloNIDine 0.1 mg Tablet PO ×2 (08:09→14:35)
[2021-09-27] MEDS: risperiDONE 0.25 mg Tablet 0.5 MG PO ×3 (08:10→19:46)
[2021-09-27] MEDS: fluticasone nasal spray 16gm Btl 1 SPRAY INTRANASAL (08:11)
--- NOTE | 2021-09-27 13:06 | P.NPUPN_ITS ---
Subjective NPU Subjective: Interval history: The patient approached me and said that he had gotten my head together. And indeed he seemed calmer and fairly emotionally regulated. He wondered if the Lamictal might be helping him. It is causing no side effects. However, a few minutes later he was again emotionally intense, intrusive, and perseverative. I observed him several times at the nurses station in the same state of mind. He wanted to tell me that a person at his [facility] should get fired because they did not get him a haircut, and this is left him with split ends?. No AV hallucinations. No suicidal or homicidal ideation. No medication side effects. Mental Status Exam MSE Comments: The patient was stirred up about various issues, and made fair eye contact today. She had mild psychomotor agitation. Speech was moderately pressured difficult to interrupt. She was alert and oriented to person, place, time, and situation. Attention and concentration are improved today. Memory is colored by emotional state. Mood is moderately dysphoric and mildly dysregulated; affect is somewhat labile. Thought process is somewhat logical, but still with racing thoughts. Thought content: Denies auditory and visual hallucinations. There are no delusions noted. No suicidal or homicidal ideation. Insight and judgment are impaired by emotional dysregulation. Impulse control is also impaired. Vitals/I&O/Wt Last Vital Signs Temp 98.4 F 09/26/21 20:16 Pulse 85 09/26/21 20:16 Resp 16 09/27/21 06:00 BP 133/82 09/26/21 20:16 Pulse Ox 97 09/26/21 20:16 Data NPU : 09/22/21 11:39 09/22/21 11:39 A&P Assessment and plan (1) Aggressive behavior: Status: Acute (2) Intellectual disability: Status: Chronic (3) Intermittent explosive disorder: Status: Chronic (4) Cluster B personality disorder: Status: Chronic Additional A&P Information This is a 26 year old trans female with a history of cluster B personality disorder, intermittent explosive disorder, and suicidal ideation, who was admitted after becoming aggressive with staff and residents of their [facility]. She was discharged from the neuropsychiatric unit 3 days ago after a 2-day hospital stay. The patient clearly has intensely dysregulated emotions which she cannot bring under control no matter the level of external controls. The dysregulation leads to physical aggression and endangers others. She needs further adjustment of medication in order to achieve better emotional regulation. RECOMMENDATION AND PLAN: 1. Continue current medication. We have still not received the fax of the patient's MAR for the past few months. We went ahead and added Lamictal 25 mg daily for mood stabilization on 09/26/21. 2. Continue every 15 minute checks for safety. 3. Encourage individual, group and milieu therapies. Involuntary Hold Information 96 Hour Hold: 96 Hour Involuntary Admission: No Attestations NPU 2 Medical Necessity Statement*: Psychiatric hospitalization is medically necessary to prevent access to lethal means, to reevaluate medication, and to coordinate a safe discharge. Likely length of stay is 2-4 days. Coding Level of Care Code Acute Account Development Representative for Jass[facility] Sierrad Diagnoses Aggressive behavior R46.89 Intellectual disability F79 Intermittent explosive disorder F63.81 Cluster B personality disorder F60.89
[2021-09-27 14:00] VITALS: BP 122/76; PULSE 94; RESP 17; TEMP 36.3; O2SAT 98
[2021-09-27] MEDS: quetiapine 100 mg Tablet PO (19:46)
[2021-09-27] MEDS: quetiapine 300 mg Tablet PO (19:47)
[2021-09-27] MEDS: pantoprazole DR 40 mg Tablet PO (19:47)
[2021-09-27] MEDS: cloNIDine 0.1 mg Tablet 0.2 MG PO (19:48)
[2021-09-27 20:50] VITALS: BP 123/81; PULSE 80; RESP 19; TEMP 36.7; O2SAT 98
[2021-09-28 06:00] VITALS: RESP 16; BMI 26.7
[2021-09-28] MEDS: quetiapine 100 mg Tablet 200 MG PO ×2 (10:14→12:21)
[2021-09-28] MEDS: risperiDONE 0.25 mg Tablet 0.5 MG PO ×3 (10:16→21:24)
[2021-09-28] MEDS: divalproex ER 250 mg Tablet (24H) PO ×3 (10:16→21:24)
[2021-09-28] MEDS: ferrous sulfate EC 325 mg Tablet PO (10:17)
[2021-09-28] MEDS: lamoTRIgine 25 mg Tablet PO (10:17)
[2021-09-28] MEDS: fluticasone nasal spray 16gm Btl 1 SPRAY INTRANASAL (10:17)
[2021-09-28] MEDS: lactulose oral liq 20 gm/30 mL UDC PO ×2 (10:17→21:23)
[2021-09-28 10:23] VITALS: BP 123/81
[2021-09-28] MEDS: cloNIDine 0.1 mg Tablet PO ×2 (10:23→12:21)
[2021-09-28 12:21] VITALS: BP 123/81
[2021-09-28 14:00] VITALS: BP 138/91; PULSE 110; RESP 18; TEMP 36.6; O2SAT 97
[2021-09-28] MEDS: hyDROXYzine 25 mg Capsule 50 MG PO (15:15)
--- NOTE | 2021-09-28 16:20 | W.PM.NPUPNS ---
Subjective NPU Subjective: Interval history: Z presents today reporting that he is not to blame for being here and that he wants to discharge today. We discussed the fact that this has been his report every time he comes here that at someone else's fault. He went into a lengthy discussion of how he swung his arm around but had no idea the person was behind him. We discussed the fact that we would work with his guardian and his senior care for possible discharge in the next 48 hours once we have an understanding of any additional concerns. We discussed the Lamictal needing slow but steady titration for effectiveness. Mental Status Exam MSE Comments: This is an well-nourished well-developed trans-female who uses they/their pronouns, with adequate dress, grooming and limited eye contact. No abnormal movements except for psychomotor agitation cooperative with exam in no mild to moderate distress. Speech was childlike and increased rate and volume. Mood described as mad, affect labile. Thought process fairly concrete. Thought content: Patient denied any suicidal or homicidal ideation, there were no delusions reported or noted, they denied any auditory visual hallucinations. Attention and concentration appear intact and memory appears limited but none were formally tested. They are alert and oriented x3. Insight and judgment are limited . Impulse control is limited and intellectual ability appears impaired. Vitals/I&O/Wt Last Vital Signs Temp 97.8 F 09/28/21 14:00 Pulse 110 H 09/28/21 14:00 Resp 18 09/28/21 14:00 BP 138/91 09/28/21 14:00 Pulse Ox 97 09/28/21 14:00 Weight last 48 hrs Weight 87.09 kg Data NPU : 09/22/21 11:39 09/22/21 11:39 A&P Additional A&P Information (1) Aggressive behavior: (2) Intellectual disability: (3) Intermittent explosive disorder: (4) Cluster B personality disorder: Additional A&P Information This is a 26 year old trans female with a history of cluster B personality disorder, intermittent explosive disorder, and suicidal ideation, who was admitted after becoming aggressive with staff and residents of their senior care. She was discharged from the neuropsychiatric unit 3 days ago after a 2-day hospital stay. The patient clearly has intensely dysregulated emotions which she cannot bring under control no matter the level of external controls. The dysregulation leads to physical aggression and endangers others. She needs further adjustment of medication in order to achieve better emotional regulation. RECOMMENDATION AND PLAN: 1. Continue current medication. We have still not received the fax of the patient's MAR for the past few months. We went ahead and added Lamictal 25 mg daily for mood stabilization on 09/26/21 we will discharged with weekly increase of 25 mg for 3 weeks for 100 mg total to be reevaluated by outpatient doctor. 2. Continue every 15 minute checks for safety. 3. Encourage individual, group and milieu therapies. Involuntary Hold Information 96 Hour Hold: 96 Hour Involuntary Admission: No Attestations NPU Medical Necessity Statement*: Psychiatric hospitalization is medically necessary to prevent access to lethal means, to reevaluate medication, and to coordinate a safe discharge. Likely length of stay is 2-4 days. Coding Level of Care Code Acute Stock Fitter for Jasson Escalante
[2021-09-28] MEDS: haloperidol inj 5 mg/mL INJ 1 mL IM (17:50)
[2021-09-28] MEDS: ziprasidone 20 mg/mL SDV IM (17:51)
[2021-09-28] MEDS: water for injection-sterile 10 ML (19:26)
--- NOTE | 2021-09-28 19:27 | PC.NURSE ---
patient was very agitated screaming in the estrella and in the day room disturbing the other patients while they were trying to eat dinner. he was upset that he was being bullied by the others because they had told him to be quiet. the patient was repeatedly asked to lower their voice and to calm down, patient did not comply but only got louder. pt was asked to leave the room and go to their room, patient did not go without verbal threats, name calling and some minimal resistance. once in the estrella the patient continued to be a disturbance, bringing the other patients into the discussion with name calling and being antagonistic. pt was advised that behavior was not acceptable. security presence did not deter his behaviour either. d/t his behavior patient did agree to shots.
[2021-09-28 19:48] VITALS: BP 109/66; PULSE 89; RESP 20; TEMP 36.8; O2SAT 97
--- NOTE | 2021-09-28 19:57 | PC.NURSE ---
Late Entry Patient has been disruptive throughout the day. He was able to be verbally redirected until around 5 pm this afternoon. Patient had began going into other patient's rooms and name calling and threatening other patient's. Patient was asked to go to his room and he told this nurse to fuck off . Per verbal order from Dr. Quarles patient was given Geodon 20mg IM & Haldol 5mg IM. Patient willing took injections. Namita Soto LPN and Adamaris MURO were present for injections. Patient is resting in his room at this time. RR even and unlabored.
[2021-09-28] MEDS: quetiapine 300 mg Tablet PO (21:24)
[2021-09-28] MEDS: quetiapine 100 mg Tablet PO (21:24)
[2021-09-28 21:25] VITALS: BP 109/66
[2021-09-28] MEDS: cloNIDine 0.1 mg Tablet 0.2 MG PO (21:25)
[2021-09-28] MEDS: OLANZapine 5 mg ODT PO (21:26)
[2021-09-28] MEDS: pantoprazole DR 40 mg Tablet PO (21:26)
--- NOTE | 2021-09-28 23:54 | PC.NURSE ---
Refused to allow nurse to listen to lungs or bowel sounds
--- NOTE | 2021-09-29 03:13 | PC.NURSE ---
Patient irritable and uncooperative with some care at start of shift. Refused nurse to assess heart, lung and bowel sounds. Remained agitated that another patient would not apologize. Patient took HS meds as ordered. Also took PRN Zydis to good effect for agitation.
[2021-09-29 06:00] VITALS: BP 100/68; PULSE 79; RESP 17; TEMP 528.8; TEMP 984; O2SAT 98
[2021-09-29] MEDS: divalproex ER 250 mg Tablet (24H) PO ×3 (10:28→20:26)
[2021-09-29] MEDS: quetiapine 100 mg Tablet 200 MG PO ×2 (10:28→12:58)
[2021-09-29] MEDS: lactulose oral liq 20 gm/30 mL UDC PO ×2 (10:28→20:29)
[2021-09-29] MEDS: cloNIDine 0.1 mg Tablet PO ×2 (10:29→12:57)
[2021-09-29] MEDS: lamoTRIgine 25 mg Tablet PO (10:29)
[2021-09-29] MEDS: risperiDONE 0.25 mg Tablet 0.5 MG PO ×3 (10:29→20:27)
[2021-09-29] MEDS: ferrous sulfate EC 325 mg Tablet PO (10:29)
[2021-09-29] MEDS: fluticasone nasal spray 16gm Btl 1 SPRAY INTRANASAL (10:30)
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
[2021-09-29 14:00] VITALS: BP 115/64; PULSE 103; RESP 17; TEMP 36.9; O2SAT 98
--- NOTE | 2021-09-29 16:54 | P.NPUPN_ITS ---
Subjective NPU Subjective: Interval history: Patient presents today continue to focus on discharge. We discussed the age-related need for him to be in control of his faculties for us to discuss discharge. He identified when he had his moment, and reported that he would manage himself and was trying to negotiate a certain discharge tomorrow but we agreed we will have another discussion tomorrow to determine whether he was ready. Mental Status Exam MSE Comments: This is an well-nourished well-developed trans-female who uses they/their pronouns, with adequate dress, grooming and limited eye contact. No abnormal movements except for mild/improved psychomotor agitation. Cooperative with exam in no acute distress. Speech was childlike and low normal rate and volume. Mood described as better, affect less labile. Thought process fairly concrete. Thought content: Patient denied any suicidal or homicidal ideation, there were no delusions reported or noted, they denied any auditory visual h allucinations. Attention and concentration appear intact and memory appears limited but none were formally tested. They are alert and oriented x3. Insight and judgment are limited . Impulse control is limited and intellectual ability appears impaired. Vitals/I&O/Wt Last Vital Signs Temp 98.4 F 09/29/21 14:00 Pulse 103 H 09/29/21 14:00 Resp 17 09/29/21 14:00 BP 115/64 09/29/21 14:00 Pulse Ox 98 09/29/21 14:00 Weight last 48 hrs Weight 87.09 kg Data NPU : 09/22/21 11:39 09/22/21 11:39 A&P Additional A&P Information (1) Aggressive behavior: (2) Intellectual disability: (3) Intermittent explosive disorder: (4) Cluster B personality disorder: Additional A&P Information This is a 26 year old trans female with a history of cluster B personality disorder, intermittent explosive disorder, and suicidal ideation, who was admitted after becoming aggressive with staff and residents of their halfway. She was discharged from the neuropsychiatric unit 3 days ago after a 2-day hospital stay. The patient clearly has intensely dysregulated emotions which she cannot bring under control no matter the level of external controls. The dysregulation leads to physical aggression and endangers others. She needs further adjustment of medication in order to achieve better emotional regulation. RECOMMENDATION AND PLAN: 1. Continue current medication. We have still not received the fax of the patient's MAR for the past few months. We went ahead and added Lamictal 25 mg daily for mood stabilization on 09/26/21 we will discharged with weekly increase of 25 mg for 3 weeks for 100 mg total to be reevaluated by outpatient doctor. 2. Continue every 15 minute checks for safety. 3. Encourage individual, group and milieu therapies. Involuntary Hold Information 96 Hour Hold: 96 Hour Involuntary Admission: No Attestations NPU Medical Necessity Statement*: Psychiatric hospitalization is medically necessary to prevent access to lethal means, to reevaluate medication, and to coordinate a safe discharge. Likely length of stay is 1-3 days. Coding Level of Care Code Acute Occupational Therapy Department Chair for Jasson Escalante
[2021-09-29] MEDS: quetiapine 100 mg Tablet PO (20:23)
[2021-09-29] MEDS: pantoprazole DR 40 mg Tablet PO (20:25)
[2021-09-29] MEDS: cloNIDine 0.1 mg Tablet 0.2 MG PO (20:25)
[2021-09-29] MEDS: quetiapine 300 mg Tablet PO (20:26)
[2021-09-29 21:11] VITALS: BP 138/89; PULSE 101; RESP 22; TEMP 36.5; O2SAT 97
--- NOTE | 2021-09-30 04:31 | PC.NURSE ---
Patient loud, hyperverbal and anxious in evening. Needed frequent redirection. Very demanding with staff at times. Took HS medications. Patient did calm after talking one to one with staff. Remained resting in bed most of night after this other than up one time. When up briefly, just wanted reassurance from staff that there would not be a tracker in his COVID vaccine when he received it.
[2021-09-30 05:45] VITALS: BP 105/69; PULSE 86; RESP 19; TEMP 36.8; O2SAT 97
[2021-09-30] MEDS: lactulose oral liq 20 gm/30 mL UDC PO (10:16)
[2021-09-30] MEDS: ferrous sulfate EC 325 mg Tablet PO (10:17)
[2021-09-30] MEDS: lamoTRIgine 25 mg Tablet PO (10:17)
[2021-09-30] MEDS: cloNIDine 0.1 mg Tablet PO ×2 (10:17→13:09)
[2021-09-30] MEDS: quetiapine 100 mg Tablet 200 MG PO ×2 (10:17→13:09)
[2021-09-30] MEDS: fluticasone nasal spray 16gm Btl 1 SPRAY INTRANASAL (10:18)
[2021-09-30] MEDS: divalproex ER 250 mg Tablet (24H) PO ×2 (10:18→13:08)
[2021-09-30] MEDS: risperiDONE 0.25 mg Tablet 0.5 MG PO ×2 (10:18→13:09)
--- NOTE | 2021-09-30 11:23 | NPU.GN ---
[facility] Topic:Mental Health Crossword Puzzle/ Psych Education General Mood of Group: Artemio did not attend group this morning . He wanted to sleep and was cranky about wanting breakfast.
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
[2021-09-30 14:27] VITALS: BP 105/69; PULSE 86; RESP 19; TEMP 36.8; O2SAT 97
== END 2021-09-30 16:20 | disposition home or self-care (01) | DRG 883 ==
LOC: ER 13:20 → NP 17:20
PROVIDERS: Physician Assistant; Admitting Provider Psychiatry & Neurology Child & Adolescent Psychiatry; Emergency Provider Family Medicine; PCP Nurse Practitioner Family; Visit Provider Psychiatry & Neurology Psychiatry
DX: F63.81 Intermittent explosive disorder (principal); R45.851 Suicidal ideations; Z87.891 Personal history of nicotine dependence; F60.89 Other specific personality disorders; F31.9 Bipolar disorder, unspecified; F84.0 Autistic disorder; F90.9 Attention-deficit hyperactivity disorder, unspecified type; F42.9 Obsessive-compulsive disorder, unspecified; F79 Unspecified intellectual disabilities
CPT/HCPCS: 36415; 80053; 80164; 80307; 85025; 96372; 97150; 97165; 99285; J1630; J3486

== ENCOUNTER 2021-10-27 18:55 | Inpatient (IN) | payer MEDICAID, SELFPAY ==
[2021-10-27 19:09] VITALS: BP 115/67; PULSE 80; RESP 18; TEMP 36.2; O2SAT 98; BMI 25.7
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
[2021-10-27 19:27] LABS: Basophils # 0.1 10^3/uL (0.0-0.1); Basophils % 1.4 %; Eosinophils # 0.1 10^3/uL (0.0-0.8); Eosinophils % 1.4 %; Hematocrit 42.4 % (42.0-52.0); Lymphocytes # 1.8 10^3/uL (0.8-4.8); Lymphocytes % 18.6 %; Mean Corpuscular Hemoglobin 28.6 pg (28.0-34.0); Mean Corpuscular Volume 86.5 fl (80-94); Mean Platelet Volume 9.9 fL (7.4-10.4); Monocytes # 0.8 10^3/uL (0.2-0.9); Monocytes % 8.7 %; Neutrophils # 6.65 10^3/uL (1.8-7.7); Neutrophils % 69.6 %; Nucleated Red Blood Cells % 0 %; Platelet Count 343 10^3/cmm (130-400); Red Cell Distribution Width 12.3 % (12.1-15.1); White Blood Count 9.5 10^3/uL (4.0-10.0)
--- NOTE | 2021-10-27 20:02 | PC.NURSE ---
Given sandwich and soda.
[2021-10-27 20:14] LABS: Alanine Aminotransferase 60 U/L (0-41); Albumin Level 4.5 g/dL (3.5-5.2); Alkaline Phosphatase 119 IU/L (40-130); Anion Gap 19.2 (5-19); Aspartate Amino Transferase 21 U/L (0-40); Blood Urea Nitrogen 7 mg/dL (6-20); Calcium 9.1 mg/dL (8.5-10.5); Carbon Dioxide 22 mmol/L (22-29); Chloride 100 mmol/L (98-107); Globulin 2.3 g/dL (1.3-4.6); Glucose 85 mg/dL (65-115); Osmolality Calculated 281 mOsm/kg (285-295); Potassium 4.2 mmol/L (3.5-5.1); Sodium 137 mmol/L (136-145); Total Bilirubin 0.2 mg/dL (0.15-1.2); Total Protein 6.8 g/dL (6.6-8.7); Valproic Acid Level 29.2 ug/mL (50-100)
[2021-10-27] MEDS: LORazepam 2 mg Tablet PO (20:16)
[2021-10-27 20:17] LABS: Acetaminophen < 5.0 ug/mL (10-30); Alcohol Level < 10 mg/dL (0-10); Salicylate < 0.3 mg/dL (3-10)
[2021-10-27 20:21] LABS: Amphetamines Screen Urine Negative (Negative); Barbiturates Screen Urine Negative (Negative); Benzodiazepines Screen Urine Negative (Negative); Cocaine Screen Urine Negative (Negative); Opiate Screen Urine Negative (Negative); PCP Screen Urine Negative (Negative)
[2021-10-27 20:29] LABS: THC Screen Urine Negative (Negative)
[2021-10-27 21:45] VITALS: BP 114/71; PULSE 78; RESP 16; O2SAT 99
[2021-10-27 22:10] VITALS: BP 114/71; PULSE 78; RESP 16; TEMP 36.2; O2SAT 99
[2021-10-27 22:30] VITALS: BP 126/77; PULSE 96; RESP 18; TEMP 37; O2SAT 97
[2021-10-27] MEDS: trazodone 50 mg Tablet PO (22:37)
[2021-10-27] MEDS: hyDROXYzine 25 mg Capsule 50 MG PO (22:37)
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
[2021-10-28 06:36] VITALS: BP 102/67; PULSE 68; RESP 16; TEMP 36.8; O2SAT 98
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
[2021-10-28] MEDS: fluticasone nasal spray 16gm Btl 1 SPRAY INTRANASAL (12:27)
[2021-10-28 12:28] VITALS: BP 102/67
[2021-10-28] MEDS: quetiapine 100 mg Tablet 200 MG PO ×2 (12:28→22:05)
[2021-10-28] MEDS: cloNIDine 0.1 mg Tablet PO (12:28)
[2021-10-28] MEDS: ferrous sulfate EC 325 mg Tablet PO (12:28)
[2021-10-28] MEDS: benztropine 1 mg Tablet PO ×2 (12:28→14:45)
[2021-10-28] MEDS: lamoTRIgine 100 mg Tablet PO (12:28)
[2021-10-28] MEDS: hyDROXYzine 25 mg Capsule 50 MG PO (12:28)
[2021-10-28] MEDS: divalproex ER 250 mg Tablet (24H) PO ×2 (12:29→22:05)
[2021-10-28 14:00] VITALS: BP 128/86; PULSE 92; RESP 18; TEMP 36.4; O2SAT 98
[2021-10-28] MEDS: risperiDONE 0.25 mg Tablet 0.5 MG PO ×2 (14:45→22:00)
[2021-10-28] MEDS: lactulose oral liq 20 gm/30 mL UDC 30 GM PO (18:35)
[2021-10-28 22:00] VITALS: RESP 17
[2021-10-28 22:03] VITALS: BP 128/86
[2021-10-28] MEDS: cloNIDine 0.1 mg Tablet 0.2 MG PO (22:03)
[2021-10-28] MEDS: quetiapine 100 mg Tablet 400 MG PO (22:05)
[2021-10-29 06:00] VITALS: BP 130/84; PULSE 80; RESP 15; O2SAT 97
--- NOTE | 2021-10-29 09:22 | W.PM.NPUPNS ---
Subjective NPU Subjective: Interval history: He continues to make to be released back to his facility. He says that he needs to move his things. He was told at the facility was moving his things that he had not noticed his place at the new apartment. He was somewhat satisfied with that. His behavior on the unit has been fairly good. Mental Status Exam MSE Comments: This is an well-nourished well-developed trans-female who uses they/their pronouns, with adequate dress, grooming and limited eye contact. No abnormal movements except for psychomotor agitation cooperative with exam in no mild to moderate distress. Speech was childlike and increased rate and volume. Mood described as angry, affect labile. Thought process fairly concrete. Thought content: Patient denied any suicidal or homicidal ideation, there were no delusions reported or noted, they denied any auditory visual hallucinations. Attention and concentration appear intact and memory appears limited but none were formally tested. They are alert and oriented x3. Insight and judgment are limited . Impulse control is limited and intellectual ability appears impaired. Cognition: Patient Appearance: Appropriate Level of Consciousness: Awake, Alert, Appropriate and Follows Commands Patient Cognition Impaired: No Ability to Follow Directions: Poor Patient Orientation (long list): Person, Place, Time, Name, Age, Birthday, Day of Month, Day of Week, Month, Time of Day and Year Comprehension Ability: Mild Impairment Hallucination Type: None Delusion Description: Not Present Thought Process: Appropriate Affect: Affect Description: Appropriate Behavior: Patient Behavior: Appropriate and Cooperative Speech Pattern: Appropriate and Clear Vitals/I&O/Wt Last Vital Signs Temp 98.0 F 10/31/21 07:28 Pulse 115 H 10/31/21 07:28 Resp 16 10/31/21 07:28 BP 118/78 10/31/21 08:54 Pulse Ox 97 10/31/21 07:28 Data NPU : 10/27/21 19:18 10/27/21 19:18 A&P Assessment and plan (1) Asperger syndrome: Status: Acute (2) Intermittent explosive disorder in adult: Status: Acute (3) Borderline personality disorder in adult: Status: Acute (4) Intellectual disability: Status: Acute (5) Aggressive behavior: Status: Acute Additional A&P Information (1) Asperger syndrome: (2) Intermittent explosive disorder in adult: (3) Borderline personality disorder in adult: (4) Intellectual disability: (5) Aggressive behavior: Additional A&P Information Plan: 1. Continue current medication. 2. Continue every 15 minute checks for safety. 3. Encourage individual, group and milieu therapies. 4. We will monitor for safety for himself in the community prior to discharge. Plan for discharge tomorrow. Involuntary Hold Information 96 Hour Hold: 96 Hour Involuntary Admission: No Attestations NPU Medical Necessity Statement*: Inpatient hospitalization is medically necessary and the clinically appropriate intervention at this time. We will initiate medications and make changes as indicated. 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
[2021-10-29] MEDS: prenatal vitamin Capsule 1 CAP PO (10:28)
[2021-10-29] MEDS: pantoprazole DR 40 mg Tablet PO (10:28)
[2021-10-29] MEDS: ferrous sulfate EC 325 mg Tablet PO (10:28)
[2021-10-29] MEDS: lamoTRIgine 100 mg Tablet PO (10:28)
[2021-10-29] MEDS: benztropine 1 mg Tablet PO ×3 (10:29→20:56)
[2021-10-29] MEDS: divalproex ER 250 mg Tablet (24H) PO ×2 (10:29→14:11)
[2021-10-29] MEDS: risperiDONE 0.25 mg Tablet 0.5 MG PO ×3 (10:29→20:57)
[2021-10-29] MEDS: quetiapine 100 mg Tablet 200 MG PO (10:30)
[2021-10-29 10:31] VITALS: BP 130/84
[2021-10-29] MEDS: fluticasone nasal spray 16gm Btl 1 SPRAY INTRANASAL (10:31)
[2021-10-29] MEDS: lactulose oral liq 20 gm/30 mL UDC 30 GM PO ×2 (10:31→17:50)
[2021-10-29] MEDS: cloNIDine 0.1 mg Tablet PO ×2 (10:31→11:57)
[2021-10-29 11:57] VITALS: BP 130/84
--- NOTE | 2021-10-29 13:31 | NPU.GN ---
[facility] Unit Group Topic:Paul Osorios Activity General Mood of Group: Artemio did not attend group this morning as he was sleeping .
[2021-10-29 14:00] VITALS: BP 130/84; PULSE 80; RESP 15; TEMP 36.4; O2SAT 97
[2021-10-29 14:13] VITALS: BP 123/75; PULSE 103; RESP 16; TEMP 37.1; O2SAT 98
[2021-10-29] MEDS: acetaminophen 325 mg Tablet 650 MG PO (15:53)
[2021-10-29] MEDS: quetiapine 100 mg Tablet 400 MG PO (20:56)
[2021-10-29] MEDS: cloNIDine 0.1 mg Tablet 0.2 MG PO (20:56)
[2021-10-29 22:00] VITALS: RESP 19
[2021-10-30 06:00] VITALS: RESP 16
[2021-10-30] MEDS: divalproex ER 250 mg Tablet (24H) PO ×3 (09:31→21:23)
[2021-10-30] MEDS: quetiapine 100 mg Tablet 200 MG PO ×2 (09:31→11:38)
[2021-10-30] MEDS: ferrous sulfate EC 325 mg Tablet PO (09:31)
[2021-10-30] MEDS: pantoprazole DR 40 mg Tablet PO (09:31)
[2021-10-30] MEDS: risperiDONE 0.25 mg Tablet 0.5 MG PO ×3 (09:31→21:23)
[2021-10-30 09:32] VITALS: BP 123/75
[2021-10-30] MEDS: benztropine 1 mg Tablet PO ×3 (09:32→21:23)
[2021-10-30] MEDS: cloNIDine 0.1 mg Tablet PO ×2 (09:32→11:38)
[2021-10-30] MEDS: lamoTRIgine 100 mg Tablet PO (09:32)
[2021-10-30] MEDS: prenatal vitamin Capsule 1 CAP PO (09:32)
[2021-10-30] MEDS: lactulose oral liq 20 gm/30 mL UDC 30 GM PO ×2 (09:32→18:32)
[2021-10-30] MEDS: fluticasone nasal spray 16gm Btl 1 SPRAY INTRANASAL (09:34)
[2021-10-30 11:38] VITALS: BP 123/75
[2021-10-30 13:58] VITALS: BP 126/69; PULSE 79; RESP 16; TEMP 36.7; O2SAT 98
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
[2021-10-30 21:20] VITALS: BP 118/78; PULSE 115; RESP 18; TEMP 36.7; O2SAT 97
[2021-10-30] MEDS: quetiapine 100 mg Tablet 400 MG PO (21:23)
[2021-10-30] MEDS: cloNIDine 0.1 mg Tablet 0.2 MG PO (21:39)
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
[2021-10-31 06:00] VITALS: RESP 16
[2021-10-31 07:28] VITALS: BP 118/78; PULSE 115; RESP 16; TEMP 36.7; O2SAT 97
[2021-10-31] MEDS: lamoTRIgine 100 mg Tablet PO (08:53)
[2021-10-31] MEDS: divalproex ER 250 mg Tablet (24H) PO (08:53)
[2021-10-31 08:54] VITALS: BP 118/78
[2021-10-31] MEDS: pantoprazole DR 40 mg Tablet PO (08:54)
[2021-10-31] MEDS: ferrous sulfate EC 325 mg Tablet PO (08:54)
[2021-10-31] MEDS: prenatal vitamin Capsule 1 CAP PO (08:54)
[2021-10-31] MEDS: cloNIDine 0.1 mg Tablet PO (08:54)
[2021-10-31] MEDS: quetiapine 100 mg Tablet 200 MG PO (08:54)
[2021-10-31] MEDS: benztropine 1 mg Tablet PO (08:54)
[2021-10-31] MEDS: lactulose oral liq 20 gm/30 mL UDC 30 GM PO (08:55)
[2021-10-31] MEDS: risperiDONE 0.25 mg Tablet 0.5 MG PO (09:13)
[2021-10-31] MEDS: fluticasone nasal spray 16gm Btl 1 SPRAY INTRANASAL (09:14)
== END 2021-10-31 11:15 | disposition home or self-care (01) | DRG 883 ==
LOC: ER 20:31 → NP 20:44
PROVIDERS: Admitting Provider Psychiatry & Neurology Psychiatry; Emergency Provider Emergency Medicine; PCP Nurse Practitioner Family; Visit Provider Psychiatry & Neurology Psychiatry
DX: F63.81 Intermittent explosive disorder (principal); F84.5 Asperger's syndrome; F79 Unspecified intellectual disabilities; Z87.891 Personal history of nicotine dependence; F91.1 Conduct disorder, childhood-onset type; F60.3 Borderline personality disorder
CPT/HCPCS: 80053; 80164; 80306; 80307; 85025; 97150; 97165; 99285

== ENCOUNTER 2022-07-17 14:15 | Emergency (ER) | payer MEDICAID, SELFPAY ==
[2022-07-17 14:20] VITALS: BP 136/87; PULSE 94; RESP 16; O2SAT 96; BMI 27.8
--- NOTE | 2022-07-17 14:22 | W.ED.PSYCHS ---
HPI - Psych General: Chief Complaint: Psychiatric Symptoms Stated Complaint: CUT L WRIST/ BEHAVIORAL ISSUES Time Seen by Provider: 07/17/22 14:21 History of Present Illness: Melissa is a 27-year-old transgendered female with complex past medical history presents to the emergency department due to self-harm behavior. She reports being frustrated about not getting what she wanted earlier and got a pair of scissors and tried to cut her wrist. She has a superficial laceration without active bleeding. She reports that she would never actually hurt herself and she was doing this because she was frustrated that people were not listening to her. Otherwise denies medical complaints. Tdap up-to-date. No other specific changes in health, exacerbating, or alleviating factors identified. Review of Systems General: Reports: 10 or more systems reviewed and unremarkable except in HPI and below PFSH ED PFSH: Medical History (Updated 07/29/22 @ 21:36 by Mane Tran MD) Aggressive behavior Asperger syndrome Borderline personality disorder in adult Intellectual disability Intermittent explosive disorder in adult Surgical History (Updated 07/29/22 @ 21:36 by Mane Tran MD) No significant past surgical history Social History Smoking and tobacco status: former smoker Physical Exam Const: COMMON NORMALS: alert GENERAL APPEARANCE: cooperative and well developed HENMT: COMMON NORMALS: normocephalic and atraumatic HEAD & SCALP: normocephalic and atraumatic Eye: COMMON NORMALS: conjunctivae normal CONJUNCTIVA: Yes conjunctivae normal SCLERA: sclerae normal Neck/C-Spine: COMMON NORMALS: supple GENERAL: Yes trachea midline Resp: COMMON NORMALS: normal respiratory effort EFFORT & INSPECTION: Yes able to speak in complete sentences Cardio: COMMON NORMALS: regular rate and regular rhythm RATE: regular rate RHYTHM: regular rhythm GI: COMMON NORMALS: Soft to palpation PALPATION: Yes Soft to palpation and No Tenderness to palpation present (GI) Extremity: NARRATIVE EXTREMITY EXAM: minor superficial 2 cm injury to wrist, no bleeding, no repair required. GENERAL: Yes normal exam except as noted and No edema Neuro: COMMON NORMALS: moves all extremities SENSORIUM/ORIENTATION: Yes alert and No Orientation impaired Psych: COMMON NORMALS: denies homicidal ideation and denies suicidal ideation Course Vital Signs: Vital signs: Vital Signs Pulse Rate 94 07/17/22 18:12 Respiratory Rate 16 07/17/22 18:12 Blood Pressure 136/87 07/17/22 18:12 Pulse Oximetry 96 07/17/22 18:12 Oxygen Delivery Me thod 07/17/22 15:06 MDM - Psych Medical Decision Making 27-year-old transgender individual presenting for self-harm behavior. Patient adamantly denies suicidal or homicidal ideation. Patient is complex history and is well-known to psychiatry service. Psychiatry service consulted and patient satisfactory for outpatient management with strict return precautions given. Medical Records I reviewed the patient's medical records. Lab Data I reviewed the patient's lab results. Discharge Plan Discharge Patient Disposition: Home Clinical Impression: Self-harming behavior, Outbursts of explosive behavior Condition: Stable Prescriptions: No Action acetaminophen 325 mg Tablet 650 mg PO QID PRN (Reason: Pain) quetiapine [Seroquel] 200 mg Tablet 400 mg PO BEDTIME ferrous sulfate 325 mg (65 mg iron) Tablet 325 mg PO DAILY@08 omeprazole 20 mg Capsule,Delayed Release(Dr/Ec) 20 mg PO DAILY fluticasone propionate 50 mcg/actuation [place],Suspension 1 spray INTRANASAL DAILY@08 lactulose 10 gram/15 mL Solution 30 ml PO BID@08,20 melatonin 10 mg capsule 10 mg PO BEDTIME@20 quetiapine [Seroquel] 200 mg Tablet 200 mg PO BID@08,12 30 Days Qty: 60 0RF clonidine HCl 0.1 mg tablet 0.2 mg PO BEDTIME clonidine HCl 0.1 mg tablet 0.1 mg PO BID@08,12 benztropine 1 mg tablet 1 mg PO TID@08,12,20 divalproex [Depakote ER] 250 mg tablet extended release 24 hr 250 mg PO TID@08,12,20 Vitamin Plus Low Iron 27 mg iron- 1 mg tablet 1 tab PO DAILY@08 risperidone 2 mg tablet See Rx Instructions .ROUTE .COMPLEX Rx Instructions: 2mg po bid@08,12 and 4mg po bedtime@20 Benefiber Sugar Free (dextrin) 3 gram/4 gram powder in packet 1 packet PO DAILY@12 Lamictal 100 mg tablet 100 mg PO DAILY@08 Discharge Orders: Discharge ED (Routine); Ordered 07/17/22 Ordered By: Mane Tran Referrals: Yudy Zaldivar FNP [Primary Care Provider] - Discharge Diet: Usual diet Discharge Activity: Resume usual activity Activity Restrictions/Additional Instructions: Thank you for visiting the emergency department. You were seen and evaluated for behavioral outburst with self-harm behavior. After discussion with the psychiatry service and my evaluation of the patient I believe that you can continue outpatient management. Please follow-up with your psychiatric care provider. Please watch for overall changes in behavior given the changes and staff. Please be extra vigilant for increased aggression or any other significant changes and be sure to return to the emergency department for significant changes or recurrent self-harm behavior. Coding Level of Care Code ED [employer] Manager for Jasson Escalante
[2022-07-17 15:06] VITALS: BP 136/87; PULSE 94; RESP 16; O2SAT 96
--- NOTE | 2022-07-17 15:47 | PC.PHAR ---
pts caregiver jatinder verified pts medications and called jonas to verify some-states the prn lactulose was dced
[2022-07-17 18:12] VITALS: BP 136/87; PULSE 94; RESP 16; O2SAT 96
== END 2022-07-17 18:15 | disposition home or self-care (01) ==
PROVIDERS: Emergency Provider Emergency Medicine; PCP Nurse Practitioner Family
DX: R45.88 Nonsuicidal self-harm (principal); R46.89 Other symptoms and signs involving appearance and behavior; F84.5 Asperger's syndrome; Z87.891 Personal history of nicotine dependence
CPT/HCPCS: 99284

== ENCOUNTER 2022-09-27 15:42 | Emergency (ER) | payer MEDICAID, SELFPAY ==
[2022-09-27 15:49] VITALS: BP 118/74; PULSE 89; RESP 18; O2SAT 98
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
--- NOTE | 2022-09-27 16:01 | PC.NURSE ---
PT HEARD BABY IN NEXT ROOM CRYING AND STATED IM GOING TO SHUT THAT BABY UP. IM GOING TO SEW HIS MOUTH SHUT SO HE WILL JUST SHUT UP. NURSE ATTEMPTED TO CALM PATIENT AND THEN CLOSED PT ROOM DOOR WITH CURTAIN REMAINING OPEN TO REDUCE NOISE STIMULI. PT CONTINUED TO SAY ILL SEW HIS MOUTH SHUT.
== END 2022-09-27 17:09 | disposition home or self-care (01) ==
PROVIDERS: Emergency Provider Emergency Medicine; PCP Nurse Practitioner Family
DX: R45.88 Nonsuicidal self-harm (principal); R45.6 Violent behavior; F84.5 Asperger's syndrome; Z87.891 Personal history of nicotine dependence
CPT/HCPCS: 99283

== ENCOUNTER 2023-02-11 10:19 | Inpatient (IN) | payer MEDICAID, SELFPAY ==
[2023-02-11 10:20] VITALS: BP 129/89; PULSE 80; RESP 20; TEMP 36.6; O2SAT 95; BMI 34.8
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
[2023-02-11 11:04] LABS: Basophils % 0.6 %; Eosinophils # 0.1 10^3/uL (0.0-0.8); Eosinophils % 1.4 %; Hematocrit 40.8 % (42.0-52.0); Hemoglobin 13.9 g/dL (11.7-16.6); Lymphocytes # 1.8 10^3/uL (0.8-4.8); Lymphocytes % 28.2 %; Mean Corpuscular HGB Conc 34.1 g/dL (30.0-36.0); Mean Corpuscular Hemoglobin 28.4 pg (28.0-34.0); Mean Corpuscular Volume 83.3 fl (80-94); Monocytes # 0.7 10^3/uL (0.2-0.9); Neutrophils % 58.7 %; Nucleated Red Blood Cells % 0 %; Platelet Count 317 10^3/cmm (130-400); Red Cell Distribution Width 12.3 % (12.1-15.1); White Blood Count 6.5 10^3/uL (4.0-10.0)
[2023-02-11 11:26] LABS: Alanine Aminotransferase 25 U/L (0-41); Albumin Level 4.2 g/dL (3.5-5.2); Alkaline Phosphatase 69 U/L (40-130); Anion Gap 17.3 (5-19); Aspartate Amino Transferase 22 U/L (0-40); Blood Urea Nitrogen 9 mg/dL (6-20); Calcium 9.3 mg/dL (8.5-10.5); Carbon Dioxide 22 mmol/L (22-29); Chloride 102 mmol/L (98-107); Globulin 3.2 g/dL (1.3-4.6); Glomerular Filtration Rate 196.6 mL/min (90-130); Glucose 92 mg/dL (65-115); Osmolality Calculated 282 mOsm/kg (285-295); Potassium 4.3 mmol/L (3.5-5.1); Salicylate 0.4 mg/dL (3-10); Sodium 137 mmol/L (136-145); Total Bilirubin 0.2 mg/dL (0.15-1.2); Total Protein 7.4 g/dL (6.6-8.7)
[2023-02-11 11:31] LABS: Acetaminophen < 5.0 ug/mL (10-30); Alcohol Level < 10 mg/dL (0-10)
[2023-02-11 14:22] LABS: Amphetamines Screen Urine Negative (Negative); Barbiturates Screen Urine Negative (Negative); Benzodiazepines Screen Urine Negative (Negative); Cocaine Screen Urine Negative (Negative); Opiate Screen Urine Negative (Negative); PCP Screen Urine Negative (Negative); THC Screen Urine Negative (Negative)
[2023-02-11 14:24] VITALS: BP 135/84; PULSE 96; RESP 20; TEMP 36.4; O2SAT 97
--- NOTE | 2023-02-11 15:50 | PC.NURSE ---
Per Dr. Brasher hold pt's seroquel, risperidone, and depakote, when restarting meds.
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
[2023-02-11] MEDS: risperiDONE 2 mg Tablet PO (18:04)
[2023-02-11] MEDS: lithium carbonate 300 mg Capsule PO (18:04)
[2023-02-11] MEDS: haloperidol inj 5 mg/mL INJ 1 mL IM (19:01)
[2023-02-11] MEDS: LORazepam 2 mg/mL INJ 1 mL IM (19:01)
[2023-02-11] MEDS: diphenhydrAMINE 50 mg/mL SDV 1mL IM (19:01)
--- NOTE | 2023-02-11 19:24 | PC.NURSE ---
190 PT WAS BECOMING ANGRY WITH STAFF AND THE IDIOT DOCTOR FOR HOLDING HIM HERE. PT IS UPSET FOR REASONS THAT WE CAN NOT RESOLVE FROM HERE. PT IS NOT REDIRECTABLE AT THIS TIME, PT WILL NOT COMPREHEND OR ACCEPT THE ANSWERS THAT WERE GIVEN. SECURITY WAS CALLED TO HELP CALM DOWN THE PT. ADMINISTERED IM MEDICATIONS TO PT, PT COOPERATED AND TOLERATED WELL, INJECTIONS GIVEN IN BOTH DELTOIDS. NO DISTRESS NOTED. LISSA RAMÍREZ WAS NOTIFIED AND WAS PRESENT ON THE UNIT. DR. BRANTLEY WAS NOTIFIED WELL.
--- NOTE | 2023-02-11 21:00 | PC.NURSE ---
pt 1999 and 2099 medications were not given as pt at the beginning of the shift,0, had erratic behavior and was given an IM b-52 and pt has not been awake since.
[2023-02-11 22:00] VITALS: RESP 15
[2023-02-12 06:00] VITALS: RESP 18
[2023-02-12] MEDS: risperiDONE 2 mg Tablet PO ×2 (08:48→17:53)
[2023-02-12] MEDS: lamoTRIgine 100 mg Tablet PO (08:48)
[2023-02-12] MEDS: benztropine 1 mg Tablet PO ×2 (08:48→12:06)
[2023-02-12] MEDS: docusate sodium 100 mg Capsule PO (08:48)
[2023-02-12] MEDS: lithium carbonate 300 mg Capsule PO ×2 (08:48→17:53)
[2023-02-12] MEDS: fluticasone nasal spray 16gm Btl 1 SPRAY INTRANASAL (08:48)
[2023-02-12] MEDS: ferrous sulfate EC 325 mg Tablet PO (08:49)
[2023-02-12] MEDS: multivitamin therapeutic Tablet 1 TAB PO (08:49)
[2023-02-12] MEDS: lactulose oral liq 20 gm/30 mL UDC 30 GM PO (08:49)
[2023-02-12] MEDS: divalproex ER 500 mg Tablet (24H) PO (08:49)
[2023-02-12] MEDS: pantoprazole DR 40 mg Tablet 20 MG PO (08:49)
[2023-02-12 08:56] VITALS: BP 155/74
--- NOTE | 2023-02-12 09:04 | PC.NURSE ---
Patient blood pressure not appropriate to administer clonidine at this time.
[2023-02-12 12:00] VITALS: BP 122/88; PULSE 118; RESP 18; TEMP 36.9; O2SAT 96
[2023-02-12 12:15] VITALS: BP 122/88
--- NOTE | 2023-02-12 12:19 | PC.NURSE ---
Medications and Behaviors Patient blood pressure (122/88) not appropriate to administer clonidine at this time. Patient refused to take metamucil because he stated, I don't take this because I hate the taste!) Patient yelling at nurses' station, I want them (referring to social workers) to call my people NOW! I should be the most important person. I demand to talk to the doctor. They need to stop putting other patients first before me. I need to go home today! Patient waving hands and posturing. When STORAGE BATTERY CHARGER told patient we would have to resort to calling security if he would not de-escalate he began calling her a bitch. Security was notified, then patient went to his room but continues to perseverate and yell.
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
[2023-02-12 15:02] VITALS: BP 122/88
[2023-02-17 13:36] LABS: Lamotrigine (Lamictal) Level <0.5 mcg/mL (4.0-18.0)
== END 2023-02-12 18:19 | disposition home or self-care (01) | DRG 883 ==
LOC: ER 13:15 → NP 13:22
PROVIDERS: Physician Assistant; Admitting Provider Psychiatry & Neurology Psychiatry; Emergency Provider Family Medicine; PCP Nurse Practitioner Family; Visit Provider Psychiatry & Neurology Psychiatry
DX: F63.81 Intermittent explosive disorder (principal); R45.851 Suicidal ideations; F43.10 Post-traumatic stress disorder, unspecified; F84.0 Autistic disorder; Z62.810 Personal history of physical and sexual abuse in childhood
CPT/HCPCS: 36415; 80053; 80175; 80306; 80307; 85025; 96372; 97150; 97165; 99238; 99285; J1200; J1630; J2060

== ENCOUNTER 2023-02-16 21:42 | Emergency (ER) | payer MEDICAID, SELFPAY ==
--- NOTE | 2023-02-16 21:43 | XRR_ITS ---
PROCEDURE INFORMATION: Exam: XR Chest Exam date and time: 02/16/2023 10:22 PM Age: 27 years old Clinical indication: Shortness of breath; Additional info: SOB TECHNIQUE: Imaging protocol: Radiologic exam of the chest. Views: 1 view. COMPARISON: CR XR chest 1V [id number] 07/18/2021 9:49 AM FINDINGS: Lungs: Unremarkable. No consolidation. Pleural spaces: Unremarkable. No pleural effusion. No pneumothorax. Heart/Mediastinum: Unremarkable. No cardiomegaly. Bones/joints: Unremarkable. XR/XR chest 1V portable [id number] IMPRESSION: No acute findings.
[2023-02-16 21:44] VITALS: BP 131/81; PULSE 82; RESP 16; TEMP 36.7; O2SAT 97
--- NOTE | 2023-02-16 21:53 | ECG_ITS ---
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 Measurements Intervals Gays Rate: 86 P: 24 CO: 142 QRS: 64 QRSD: 97 T: 58 QT: 355 QTc: 427 Interpretive Statements SINUS RHYTHM Compared to ECG 10/04/2015 17:34:44 No significant changes Electronically Signed On 02-16-2023 23:13:02 CDT by Alyssa Lepe M.D. [email or web address]
--- NOTE | 2023-02-16 22:08 | ED_ITS ---
HPI - SOB/Dyspnea General: Chief Complaint: Shortness of Breath/Dyspnea Stated Complaint: Sob Time Seen by Provider: 02/16/23 21:48 Source: patient Mode of arrival: ambulatory Limitations: no limitations History of Present Illness: HPI Narrative: 27-year-old male states over the last days had cough congestion along with some shortness of breath. He denies any chest pain he states he feels like he had a viral infection has had some slight body aches no fever. He is in no distress here he denies any worsening or improving factors. Associated symptoms: Deny abdominal pain, fever(s), nausea or vomiting Review of Systems Const: Denies: fever(s), chills, body aches or change in appetite Eyes: Denies: blurry vision or eye discomfort ENMT: Denies: throat pain or dental pain Card: Reports: pre-syncope Resp: Reports: dyspnea and non-productive cough GI: Denies: abdominal pain, nausea, vomiting or diarrhea : Denies: dysuria Musc: Denies: neck pain or back pain Skin/Breast: Denies: rash Neuro: Denies: headache(s) Psych: Denies: depression Fareed/Lymph: Denies: easy bruising All/Imm: Denies: urticaria PFSH ED PFSH: Medical History Aggressive behavior Asperger syndrome Borderline personality disorder in adult Intellectual disability Intermittent explosive disorder in adult Surgical History No significant past surgical history Social History Smoking and tobacco status: former smoker Physical Exam Const: COMMON NORMALS: no acute distress, patient oriented x3 and healthy appearing HENMT: COMMON NORMALS: normocephalic and atraumatic HEAD & SCALP: no rmocephalic and atraumatic Eye: COMMON NORMALS: Equal, round and reactive pupils present and EOMs intact bilaterally PUPIL: Yes Equal, round and reactive pupils present Neck/C-Spine: COMMON NORMALS: full ROM and supple Chest: COMMONS NORMALS: normal inspection of the chest and normal palpation of entire chest wall Resp: COMMON NORMALS: normal respiratory effort, No retractions, No use of accessory muscles and clear to auscultation bilaterally AUSCULTATION: clear to auscultation bilaterally Cardio: COMMON NORMALS: regular rate, regular rhythm and No murmurs present (Cardio) RATE: regular rate RHYTHM: regular rhythm GI: COMMON NORMALS: Normal to inspection, nondistended, normoactive bowel sounds present, Soft to palpation, non-tender and no masses PALPATION: Yes Soft to palpation Extremity: COMMON NORMALS: normal to inspection and full ROM Neuro: COMMON NORMALS: patient oriented x3, moves all extremities and no focal motor deficits Psych: COMMON NORMALS: mental status grossly normal, Normal thought process present and cooperative THOUGHT PROCESS: Normal thought process present Skin: COMMON NORMALS: no rashes or lesions noted and no wounds GENERAL SKIN EXAM: no rashes or lesions noted Course Vital Signs: Vital signs: Vital Signs Temperature 98.1 F 02/16/23 21:44 Pulse Rate 82 02/16/23 21:44 Respiratory Rate 16 02/16/23 21:44 Blood Pressure 131/81 02/16/23 21:44 Pulse Oximetry 97 02/16/23 21:44 Oxygen Delivery Me thod 02/16/23 21:44 MDM - SOB/Dyspnea Medical Decision Making Patient presents here with cough dyspnea likely viral upper respiratory infection x-ray blood work COVID flu are all negative he is well-appearing here he is stable for discharge he is to follow-up with PCP and return if worsening. Lab Data 02/16/23 22:21 02/16/23 22:21 Labs/Radiology: Radiology Impressions Chest X-Ray 02/16/23 21:43 IMPRESSION: No acute findings. Laboratory Results WBC 8.9 10^3/uL (4.0-10.0) 02/16/23 22:21 RBC 4.93 10^6/uL (4.1-5.3) 02/16/23 22:21 Hgb 14.0 g/dL (11.7-16.6) 02/16/23 22:21 Hct 41.7 % (42.0-52.0) L 02/16/23 22:21 MCV 84.6 fl (80-94) 02/16/23 22:21 MCH 28.4 pg (28.0-34.0) 02/16/23 22:21 MCHC 33.6 g/dL (30.0-36.0) 02/16/23 22:21 RDW 12.9 % (12.1-15.1) 02/16/23 22:21 Plt Count 381 10^3/cmm (130-400) 02/16/23 22:21 MPV 10.2 fL (7.4-10.4) 02/16/23 22:21 Neut % (Auto) 52.2 % 02/16/23 22:21 Lymph % (Auto) 33.4 % 02/16/23 22:21 [place] % (Auto) 11.4 % 02/16/23 22:21 Eos % (Auto) 1.6 % 02/16/23 22:21 Baso % (Auto) 0.6 % 02/16/23 22:21 Neut # (Auto) 4.64 10^3/uL (1.8-7.7) 02/16/23 22:21 Lymph # (Auto) 3.0 10^3/uL (0.8-4.8) 02/16/23 22:21 [place] # (Auto) 1.0 10^3/uL (0.2-0.9) H 02/16/23 22:21 Eos # (Auto) 0.1 10^3/uL (0.0-0.8) 02/16/23 22:21 Baso # (Auto) 0.1 10^3/uL (0.0-0.1) 02/16/23 22:21 Nucleated RBC % (auto) 0 % 02/16/23 22: Nucleated RBCs # 0.0 /100WBC 02/16/23 22:21 Sodium 142 mmol/L (136-145) 02/16/23 22:21 Potassium 4.6 mmol/L (3.5-5.1) 02/16/23 22:21 Chloride 107 mmol/L (98-107) 02/16/23 22:21 Carbon Dioxide 23 mmol/L (22-29) 02/16/23 22:21 Anion Gap 16.6 (5-19) 02/16/23 22:21 BUN 12 mg/dL (6-20) 02/16/23 22:21 Creatinine 0.6 mg/dL (0.7-1.2) L 02/16/23 22:21 GFR Calculation 159.3 mL/min (90-130) H 03/21/23 22:21 Glucose 92 mg/dL (65-115) 02/16/23 22:21 Calculated Osmolality 293 mOsm/kg (285-295) 02/16/23 22:21 Calcium 9.1 mg/dL (8.5-10.5) 02/16/23 22:21 Total Bilirubin 0.2 mg/dL (0.15-1.2) 02/16/23 22:21 AST 29 U/L (0-40) 02/16/23 22:21 ALT 40 U/L (0-41) 02/16/23 22:21 Alkaline Phosphatase 70 U/L (40-130) 02/16/23 22:21 Total Protein 7.4 g/dL (6.6-8.7) 02/16/23 22:21 Albumin 4.3 g/dL (3.5-5.2) 02/16/23 22:21 Globulin 3.1 g/dL (1.3-4.6) 02/16/23 22:21 Influenza Type A Ag negative (Negative) 02/16/23 22:13 Influenza Type B Ag negative (Negative) 02/16/23 22:13 SARS-CoV-2 Ag (Rapid) negative (Negative) 02/16/23 22:13 EKG Data EKG 1: I personally reviewed and interpreted this EKG as follows: EKG Interpretation Date: 02/16/23 EKG interpretation time: 21:53 Interpretation: nsr hr [address] or t wave abnormalities qrs 97 qtc 399 Discharge Plan Discharge Patient Disposition: Home Clinical Impression: Dyspnea Condition: Stable Prescriptions: No Action acetaminophen 325 mg Tablet 650 mg PO QID PRN (Reason: Pain) ferrous sulfate 325 mg (65 mg iron) Tablet 325 mg PO DAILY@08 omeprazole 20 mg Capsule,Delayed Release(Dr/Ec) 20 mg PO DAILY fluticasone propionate 50 mcg/actuation [place],Suspension 1 spray INTRANASAL DAILY@08 lactulose 10 gram/15 mL Solution 30 ml PO BID@08,20 melatonin 10 mg capsule 10 mg PO BEDTIME@20 clonidine HCl 0.1 mg tablet 0.2 mg PO BEDTIME clonidine HCl 0.1 mg tablet 0.1 mg PO BID@08,12 benztropine 1 mg tablet 1 mg PO TID@08,12,20 Vitamin Plus Low Iron 27 mg iron- 1 mg tablet 1 tab PO DAILY@08 dextromethorphan polistirex [Delsym 12 hour] 30 mg/5 mL suspension,extended rel 12 hr 5 ml PO BID PRN (Reason: Cough) ibuprofen 200 mg Tablet 400 mg PO Q6H PRN (Reason: Pain) docusate sodium 100 mg capsule 100 mg PO DAILY risperidone 2 mg Tablet 2 mg PO BID 30 Days Qty: 60 1RF Seroquel 200 mg Tablet 400 mg PO BEDTIME 30 Days Qty: 60 1RF Benefiber Sugar Free (dextrin) 3 gram/4 gram powder in packet 1 packet PO DAILY@12 trazodone 50 mg Tablet 50 mg PO BEDTIME lithium carbonate 300 mg Capsule 300 mg PO BID Discharge Orders: Discharge ED (Routine); Ordered 02/16/23 Ordered By: Drew Marin Referrals: Yudy Zaldivar FNP [Primary Care Provider] - 1-3 days Discharge Diet: Advance as tolerated Discharge Activity: Resume usual activity Patient Instructions: Dyspnea (ED) Coding Level of Care Code ED Professor Of Vegetable Science for Jasson Escalante
[2023-02-16 22:29] LABS: Basophils # 0.1 10^3/uL (0.0-0.1); Basophils % 0.6 %; Eosinophils # 0.1 10^3/uL (0.0-0.8); Eosinophils % 1.6 %; Hematocrit 41.7 % (42.0-52.0); Lymphocytes % 33.4 %; Mean Corpuscular HGB Conc 33.6 g/dL (30.0-36.0); Mean Corpuscular Hemoglobin 28.4 pg (28.0-34.0); Mean Corpuscular Volume 84.6 fl (80-94); Mean Platelet Volume 10.2 fL (7.4-10.4); Monocytes % 11.4 %; Neutrophils # 4.64 10^3/uL (1.8-7.7); Neutrophils % 52.2 %; Nucleated Red Blood Cells % 0 %; Platelet Count 381 10^3/cmm (130-400); Red Blood Count 4.93 10^6/uL (4.1-5.3); Red Cell Distribution Width 12.9 % (12.1-15.1); White Blood Count 8.9 10^3/uL (4.0-10.0)
[2023-02-16 22:45] LABS: Influenza A by IFA negative (Negative); Influenza B by IFA negative (Negative); SARS Covid-2 Antigen negative (Negative)
[2023-02-16 22:57] LABS: Alanine Aminotransferase 40 U/L (0-41); Albumin Level 4.3 g/dL (3.5-5.2); Alkaline Phosphatase 70 U/L (40-130); Anion Gap 16.6 (5-19); Aspartate Amino Transferase 29 U/L (0-40); Blood Urea Nitrogen 12 mg/dL (6-20); Calcium 9.1 mg/dL (8.5-10.5); Carbon Dioxide 23 mmol/L (22-29); Chloride 107 mmol/L (98-107); Globulin 3.1 g/dL (1.3-4.6); Glomerular Filtration Rate 159.3 mL/min (90-130); Glucose 92 mg/dL (65-115); Osmolality Calculated 293 mOsm/kg (285-295); Potassium 4.6 mmol/L (3.5-5.1); Sodium 142 mmol/L (136-145); Total Bilirubin 0.2 mg/dL (0.15-1.2); Total Protein 7.4 g/dL (6.6-8.7)
[2023-02-16 23:16] VITALS: BP 137/92; PULSE 70; RESP 18; O2SAT 97
== END 2023-02-16 23:18 | disposition home or self-care (01) ==
PROVIDERS: Emergency Provider Emergency Medicine; PCP Nurse Practitioner Family
DX: R06.00 Dyspnea, unspecified (principal); Z20.822 Contact with and (suspected) exposure to COVID-19; F84.5 Asperger's syndrome; Z87.891 Personal history of nicotine dependence
CPT/HCPCS: 71045; 80053; 85025; 87426; 87804; 93005; 99285

== ENCOUNTER 2023-02-25 01:02 | Emergency (ER) | payer MEDICAID, SELFPAY ==
[2023-02-25 01:03] VITALS: BP 116/77; PULSE 71; RESP 16; TEMP 35.7; O2SAT 98
--- NOTE | 2023-02-25 01:11 | XRR_ITS ---
PROCEDURE INFORMATION: Exam: XR Abdomen Exam date and time: 02/25/2023 1:15 AM Age: 27 years old Clinical indication: Patient HX: C/O constipation with no bm x several days TECHNIQUE: Imaging protocol: Radiologic exam of the abdomen. Views: Frontal supine view of the abdomen. 1 View. COMPARISON: CR XR acute abdomen series [id number] 10/12/2016 12:10 PM FINDINGS: Gastrointestinal tract: There are no abnormally dilated loops of small bowel. There is moderate to severe fecal stasis throughout the colon. Intraperitoneal space: No evidence of free air. Bones/joints: Unremarkable. XR/XR KUB [id number] IMPRESSION: 1. Moderate to severe fecal stasis consistent with history of constipation. 2. No evidence of small bowel obstruction.
--- NOTE | 2023-02-25 01:15 | W.ED.GENADLT ---
HPI - General Adult General: Chief complaint: Abdominal Pain Stated complaint: RECTAL PAIN Time Seen by Provider: 02/25/23 01:10 Source: patient Mode of arrival: ambulatory Limitations: no limitations History of Present Illness: 27-year-old male states he had constipation for a week he states that he is having some rectal pain has not been able have a bowel movement. He denies any worsening improving factors. Rates his pain a 6 out of 10. Denies any vomiting. Associated symptoms: Deny chest pain, dyspnea, headache(s) or rash Review of Systems Const: Denies: fever(s), chills, body aches or change in appetite Eyes: Denies: blurry vision or eye discomfort ENMT: Denies: throat pain or dental pain Card: Denies: chest pain Resp: Denies: dyspnea GI: Reports: constipation : Denies: dysuria Musc: Denies: neck pain or back pain Skin/Breast: Denies: rash Neuro: Denies: headache(s) Psych: Denies: depression Fareed/Lymph: Denies: easy bruising All/Imm: Denies: urticaria PFSH ED PFSH: Medical History Aggressive behavior Asperger syndrome Borderline personality disorder in adult Intellectual disability Intermittent explosive disorder in adult Surgical History No significant past surgical history Social History Smoking and tobacco status: former smoker Physical Exam Const: COMMON NORMALS: no acute distress, patient oriented x3 and healthy appearing HENMT: COMMON NORMALS: normocephalic and atraumatic HEAD & SCALP: normocephalic and atraumatic Eye: COMMON NORMALS: Equal, round and reactive pupils present and EOMs intact bilaterally PUPIL: Yes Equal, round and reactive pupils present Neck/C-Spine: COMMON NORMALS: full ROM and supple Chest: COMMONS NORMALS: normal inspection of the chest and normal palpation of entire chest wall Resp: COMMON NORMALS: normal respiratory effort, No retractions, No use of accessory muscles and clear to auscultation bilaterally AUSCULTATION: clear to auscultation bilaterally Cardio: COMMON NORMALS: regular rate, regular rhythm and No murmurs present (Cardio) RATE: regular rate RHYTHM: regular rhythm GI: COMMON NORMALS: Normal to inspection, nondistended, normoactive bowel sounds present, Soft to palpation, non-tender and no masses PALPATION: Yes Soft to palpation Extremity: COMMON NORMALS: normal to inspection and full ROM Neuro: COMMON NORMALS: patient oriented x3, moves all extremities and no focal motor deficits Psych: COMMON NORMALS: mental status grossly normal, Normal thought process present and cooperative THOUGHT PROCESS: Normal thought process present Skin: COMMON NORMALS: no rashes or lesions noted and no wounds GENERAL SKIN EXAM: no rashes or lesions noted Course Vital Signs: Vital signs: Vital Signs Temperature 96.2 F L 02/25/23 01:03 Pulse Rate 67 02/25/23 01:50 Respiratory Rate 16 02/25/23 01:50 Blood Pressure 120/77 02/25/23 01:50 Pulse Oximetry 98 02/25/23 01:50 Oxygen Delivery Me thod 02/25/23 01:03 MDM - General Adult Medical Decision Making Patient presents here with constipation patient was very argumentative here and is refusing most treatments he did take a lactulose he refused MiraLAX he refused glycerin suppository x-ray does show constipation we will discharge him with GoLytely he is to follow-up with his PCP. Discharge Plan Discharge Patient Disposition: Home Clinical Impression: Constipation Condition: Stable Prescriptions: New Miralax 17 gram powder in packet 17 g PO DAILY PRN (Reason: constipation) Qty: 14 0RF Golytely [id number] -5.86 gram recon soln 30 ml PO Q1M Qty: 4000 0RF Rx Instructions: until fecal effluent is clear No Action acetaminophen 325 mg Tablet 650 mg PO QID PRN (Reason: Pain) ferrous sulfate 325 mg (65 mg iron) Tablet 325 mg PO DAILY@08 omeprazole 20 mg Capsule,Delayed Release(Dr/Ec) 20 mg PO DAILY fluticasone propionate 50 mcg/actuation [place],Suspension 1 spray INTRANASAL DAILY@08 lactulose 10 gram/15 mL Solution 30 ml PO BID@08,20 melatonin 10 mg capsule 10 mg PO BEDTIME@20 clonidine HCl 0.1 mg tablet 0.2 mg PO BEDTIME clonidine HCl 0.1 mg tablet 0.1 mg PO BID@08,12 benztropine 1 mg tablet 1 mg PO TID@08,12,20 Vitamin Plus Low Iron 27 mg iron- 1 mg tablet 1 tab PO DAILY@08 dextromethorphan polistirex [Delsym 12 hour] 30 mg/5 mL suspension,extended rel 12 hr 5 ml PO BID PRN (Reason: Cough) ibuprofen 200 mg Tablet 400 mg PO Q6H PRN (Reason: Pain) docusate sodium 100 mg capsule 100 mg PO DAILY risperidone 2 mg Tablet 2 mg PO BID 30 Days Qty: 60 1RF Seroquel 200 mg Tablet 400 mg PO BEDTIME 30 Days Qty: 60 1RF Benefiber Sugar Free (dextrin) 3 gram/4 gram powder in packet 1 packet PO DAILY@12 trazodone 50 mg Tablet 50 mg PO BEDTIME lithium carbonate 300 mg Capsule 300 mg PO BID Discharge Orders: Discharge ED (Routine); Ordered 02/25/23 Ordered By: Drew Marin Referrals: Americo Hendrix DO [Physician] - 1-3 days Yudy Zaldivar FNP [Primary Care Provider] - Discharge Diet: Advance as tolerated Discharge Activity: Resume usual activity Patient Instructions: Constipation (ED) Coding Level of Care Code ED Sales Development Director for Jasson Escalante
[2023-02-25] MEDS: lactulose oral liq 20 gm/30 mL UDC 30 GM PO (01:24)
[2023-02-25 01:50] VITALS: BP 120/77; PULSE 67; RESP 16; O2SAT 98
--- NOTE | 2023-02-25 13:38 | DCPLANNER ---
Addendum entered by Emelia Robertson 03/10/23 08:12: cargo and ramp services manager received the following message from general surgery regarding follow up appointment: Called patient, left message.. this is our 3rd attempt at contact, mailing letter On 03/05/23 @ 13:53 Guerita Fish Wrote To General Surgery Front Off Called Pt 03/05/23 left VM On 03/02/23 @ 10:44 Blade Mcgowan Wrote To General Surgery Front Off left message 03/02 added to log Addendum entered by Emelia Robertson 03/09/23 10:05: cargo and ramp services manager received the following message from general surgery regarding follow up appointment: Called Pt 03/05/23 left VM Addendum entered by Emelia Robertson 03/03/23 08:29: cargo and ramp services manager received the following message from general surgery regarding follow up appointment: left message 03/02 Original Note: cargo and ramp services manager had message to schedule a follow up appointment for patient with general surgery. cargo and ramp services manager sent patients to the front office staff at general surgery. Patients information will be printed and reviewed. Clinic will call patient with appointment information.
== END 2023-02-25 01:57 | disposition home or self-care (01) ==
PROVIDERS: Emergency Provider Emergency Medicine; PCP Nurse Practitioner Family
DX: K59.00 Constipation, unspecified (principal); F84.5 Asperger's syndrome; Z87.891 Personal history of nicotine dependence
CPT/HCPCS: 74018; 99283

== ENCOUNTER → 2023-07-07 13:36 | Outpatient (BNVA) | payer MEDICAID, SELFPAY | PROVIDERS: PCP Nurse Practitioner Family; Visit Provider Surgery | DX: K59.00 Constipation, unspecified (principal) | CPT/HCPCS: 99203 ==